=== PATIENT | male | born 1965 | race Hispanic/Latino ===

== ENCOUNTER 2021-05-07 10:55 | Inpatient (IN) | payer OTHER, MEDICARE ==
[~2021-05-07] VITALS: Ht 165.1 cm; Wt 64.5 kg
[2021-05-07] VITALS (20 sets, daily range): BP systolic 133–252; BP diastolic 78–102
[2021-05-07 11:18] LABS: BASOPHILS % (AUTO) 0.7 % (0.0-5.0); EOSINOPHILS % (AUTO) 1.2 % (0.0-8.0); HEMATOCRIT 34.2 % (42-54); LYMPHOCYTES % (AUTO) 8.5 % (21.0-51.0); MEAN CORPUSCULAR HEMOGLOBIN 30.8 pg (27.0-33.0); MEAN CORPUSCULAR HGB CONC 33.3 g/dL (32.0-36.0); MEAN CORPUSCULAR VOLUME 92.4 fL (79-99); MONOCYTES % (AUTO) 6.8 % (3.0-13.0); NEUTROPHILS % (AUTO) 82.5 % (40.0-77.0); PLATELET COUNT (AUTO) 206 K/uL (130-400); RED CELL DISTRIBUTION WIDTH 14.6 % (11.0-15.5); WHITE BLOOD COUNT (AUTO) 8.9 K/uL (4.8-10.8)
[2021-05-07] MEDS ORDERED: ONDANSETRON 4MG INJ ONE (11:21)
[2021-05-07] MEDS ORDERED: NITROGLYCERIN 1GM OINT 1 INCH/1GM TD ONE (11:21)
[2021-05-07 11:28] LABS: INR 0.99 (0.85-1.15); PROTHROMBIN TIME 10.8 SEC (9.6-11.6)
[2021-05-07 11:29] LABS: PARTIAL THROMBOPLASTIN TIME 40.6 SEC (26.3-35.5)
[2021-05-07] MEDS ORDERED: ONDANSETRON 4MG INJ IVP SCH (11:30)
[2021-05-07] MEDS ORDERED: NITROGLYCERIN 1GM OINT 1 INCH/1GM TD SCH (11:30)
[2021-05-07 11:31] LABS: ALBUMIN 3.8 g/dL (3.5-5.0); BILIRUBIN,TOTAL 0.4 mg/dL (0.2-1.0); TOTAL PROTEIN, SERUM 8.1 g/dL (6.0-8.3)
[2021-05-07 11:32] LABS: POTASSIUM 6.2 mmol/L (3.5-5.1)
[2021-05-07 11:33] LABS: CREATININE 9.6 mg/dL (0.5-1.5)
[2021-05-07 11:44] LABS: B-TYPE NATRIURETIC PEPTIDE 1840 pg/mL (0-100)
[2021-05-07] MEDS ORDERED: CALCIUM GLUC 1GM VIAL 1 GM in 0.9%NACL 100ML 100 ML IV SCH (12:00)
[2021-05-07] MEDS ORDERED: DEXTROSE 50%-WATER 50 ML DISP.SYRIN IV SCH (12:00)
[2021-05-07] MEDS ORDERED: FUROSEMIDE 40 MG UD CUP PO SCH (12:00)
[2021-05-07] MEDS ORDERED: INSULIN HUMULIN R 100 UNIT/ML 3ML IV SCH (12:00)
[2021-05-07] MEDS ORDERED: FUROSEMIDE 40 MG TABLET ONE (12:33)
[2021-05-07] MEDS ORDERED: CALCIUM GLUC 1GM VIAL IV ONE (12:51)
[2021-05-07] MEDS ORDERED: 0.9%NACL 100ML 100 ML ONE (12:52)
[2021-05-07] MEDS: ALBUTEROL 0.083% 2.5 MG/3 ML INH IH SCH ×2 (13:08→19:08)
[2021-05-07] MEDS ORDERED: ACET-3194 PO (13:21)
[2021-05-07] MEDS ORDERED: AVANDARYL PO (13:21)
[2021-05-07] MEDS ORDERED: Imdur PO (13:21)
[2021-05-07] MEDS ORDERED: PHOSLOC PO (13:21)
[2021-05-07] MEDS ORDERED: CLON-353 PO (13:21)
[2021-05-07] MEDS ORDERED: AMLO-258 PO (13:21)
[2021-05-07] MEDS ORDERED: CLON0.1T2 PO (13:21)
[2021-05-07] MEDS ORDERED: LISI40TA9 PO (13:21)
[2021-05-07] MEDS ORDERED: HYDR-4154 PO (13:21)
[2021-05-07] MEDS ORDERED: vitamin B6 PO (13:21)
[2021-05-07 15:06] LABS: HEMATOCRIT 31.5 % (42-54)
[2021-05-07 15:20] LABS: % IRON SATURATION 66.1 % (30-44)
[2021-05-07 15:25] LABS: ALBUMIN 3.8 g/dL (3.5-5.0); CREATININE 4.7 mg/dL (0.5-1.5)
[2021-05-07 15:40] LABS: HEMOGLOBIN A1C 7.3 % (4.0-6.0)
[2021-05-07] MEDS: INSULIN HUMULIN R 100 UNIT/ML 3ML SQ SCH ×2 (16:30→21:00)
[2021-05-07] MEDS ORDERED: CLONIDINE HCL 0.2 MG TABLET PO ONE (18:32)
[2021-05-07] MEDS ORDERED: CLONIDINE HCL 0.1 MG TABLET PO PRN (19:00)
[2021-05-07] MEDS: CLONIDINE HCL 0.2 MG TABLET PO SCH (21:00)
[2021-05-07] MEDS ORDERED: NON-FORMULARY MEDICATION 1 EACH (Hydralazine HCl 50 MG) PO SCH (21:00)
[2021-05-07] MEDS: HYDRALAZINE 25MG TABLET PO SCH (22:15)
[2021-05-07] MEDS ORDERED: AMLODIPINE 5 MG TAB ONE (23:12)
[2021-05-07] MEDS ORDERED: AMLODIPINE 5 MG TAB PO ONE (23:30)
[2021-05-08] VITALS (7 sets, daily range): BP systolic 151–198; BP diastolic 69–95
[2021-05-08] MEDS: ALBUTEROL 0.083% 2.5 MG/3 ML INH IH SCH ×5 (00:29→22:44)
[2021-05-08] MEDS ORDERED: GLUCAGON 1MG KIT 1 MG ML IM PRN (02:00)
[2021-05-08] MEDS ORDERED: ACETAMINOPHEN 325 MG TAB PO PRN ×2 (02:00)
[2021-05-08] MEDS ORDERED: DEXTROSE 50%-WATER 50 ML DISP.SYRIN IV PRN (02:00)
[2021-05-08] MEDS ORDERED: ONDANSETRON 4MG INJ IVP PRN ×2 (02:00)
[2021-05-08 04:20] LABS: BASOPHILS % (AUTO) 0.4 % (0.0-5.0); HEMATOCRIT 33.5 % (42-54); LYMPHOCYTES % (AUTO) 8.8 % (21.0-51.0); MEAN CORPUSCULAR HEMOGLOBIN 30.7 pg (27.0-33.0); MEAN CORPUSCULAR HGB CONC 33.4 g/dL (32.0-36.0); MEAN CORPUSCULAR VOLUME 91.8 fL (79-99); MONOCYTES % (AUTO) 9.2 % (3.0-13.0); NEUTROPHILS % (AUTO) 81.2 % (40.0-77.0); PLATELET COUNT (AUTO) 203 K/uL (130-400); RED BLOOD CELL COUNT(AUTO) 3.65 MIL/uL (4.50-6.20); RED CELL DISTRIBUTION WIDTH 14.8 % (11.0-15.5); WHITE BLOOD COUNT (AUTO) 7.5 K/uL (4.8-10.8)
[2021-05-08 04:45] LABS: CREATININE 6.6 mg/dL (0.5-1.5); MAGNESIUM 2.3 mg/dL (1.80-2.40); PHOSPHORUS 4.9 mg/dL (2.5-4.9); POTASSIUM 5.5 mmol/L (3.5-5.1)
[2021-05-08] MEDS: INSULIN R PO SS1/2 SQ SCH ×4 (06:06→21:20)
[2021-05-08] MEDS: CLONIDINE HCL 0.2 MG TABLET PO SCH ×3 (07:59→21:14)
[2021-05-08] MEDS: Vitamin B Complex/Vit C/Folic Acid PO SCH (07:59)
[2021-05-08] MEDS: HYDRALAZINE 25MG TABLET PO SCH ×3 (07:59→21:14)
[2021-05-08] MEDS: ISOSORBIDE MONO 60MG SR TAB PO SCH (07:59)
[2021-05-08] MEDS: CALCIUM AC 667MG CAP PO SCH ×3 (08:00→16:04)
[2021-05-08] MEDS: AVANDARYL 4 MG PO SCH (08:00)
[2021-05-08] MEDS: THIAMINE HCL 100 MG TABLET PO SCH (08:00)
[2021-05-08] MEDS: LISINOPRIL 40 MG TABLET PO SCH (08:00)
[2021-05-08] MEDS: AMLODIPINE 5 MG TAB PO SCH (08:00)
[2021-05-08] MEDS ORDERED: IMDUR 60 MG PO SCH (09:00)
[2021-05-08] MEDS ORDERED: VITAMIN B6 PO SCH (09:00)
[2021-05-08] MEDS ORDERED: PANTOPRAZOLE 40 MG/VIAL IVP SCH (09:00)
[2021-05-08] MEDS ORDERED: NON-FORMULARY MEDICATION 1 EACH (Amlodipine Besylate 10 MG) PO SCH (09:00)
[2021-05-08] MEDS ORDERED: Vitamin B Complex/Vit C/Folic Acid PO SCH (09:00)
[2021-05-08] MEDS ORDERED: FAMOTIDINE 20MG VIAL IV SCH (09:00)
[2021-05-08] MEDS ORDERED: ARTIFICAL TEARS SOL 15 ML OU PRN (17:00)
[2021-05-08] MEDS: ZOLPIDEM TARTRATE 5 MG TAB PO PRN (21:15)
[2021-05-09] VITALS (19 sets, daily range): BP systolic 120–168; BP diastolic 45–110
[2021-05-09 04:55] LABS: HEMATOCRIT 33.2 % (42-54); MEAN CORPUSCULAR HEMOGLOBIN 30.5 pg (27.0-33.0); MEAN CORPUSCULAR HGB CONC 32.8 g/dL (32.0-36.0); RED BLOOD CELL COUNT(AUTO) 3.57 MIL/uL (4.50-6.20); RED CELL DISTRIBUTION WIDTH 14.9 % (11.0-15.5); WHITE BLOOD COUNT (AUTO) 7.5 K/uL (4.8-10.8)
[2021-05-09 05:16] LABS: PHOSPHORUS 6.7 mg/dL (2.5-4.9); POTASSIUM 5.4 mmol/L (3.5-5.1)
[2021-05-09 05:33] LABS: CREATININE 9.1 mg/dL (0.5-1.5)
[2021-05-09] MEDS: INSULIN R PO SS1/2 SQ SCH ×4 (07:04→21:00)
[2021-05-09] MEDS: PANTOPRAZOLE 40 MG TAB DR PO SCH (08:04)
[2021-05-09] MEDS: AMLODIPINE 5 MG TAB PO SCH (08:04)
[2021-05-09] MEDS: LISINOPRIL 40 MG TABLET PO SCH (08:04)
[2021-05-09] MEDS: ISOSORBIDE MONO 60MG SR TAB PO SCH (08:04)
[2021-05-09] MEDS: THIAMINE HCL 100 MG TABLET PO SCH (08:04)
[2021-05-09] MEDS: CALCIUM AC 667MG CAP PO SCH ×3 (08:04→16:18)
[2021-05-09] MEDS: AVANDARYL 4 MG PO SCH (08:05)
[2021-05-09] MEDS: Vitamin B Complex/Vit C/Folic Acid PO SCH (08:05)
[2021-05-09] MEDS: HYDRALAZINE 25MG TABLET PO SCH ×3 (08:05→21:49)
[2021-05-09] MEDS: CLONIDINE HCL 0.2 MG TABLET PO SCH ×3 (08:05→21:49)
[2021-05-09] MEDS: ALBUTEROL 0.083% 2.5 MG/3 ML INH IH SCH ×4 (08:29→23:26)
[2021-05-09 17:10] LABS: HEPATITIS Bs ANTIGEN SCREEN P Negative (Negative)
[2021-05-09] MEDS: ZOLPIDEM TARTRATE 5 MG TAB PO PRN (21:44)
[2021-05-10 03:10] VITALS: BP 135/76
[2021-05-10 03:56] LABS: HEMATOCRIT 29.7 % (42-54); MEAN CORPUSCULAR HEMOGLOBIN 30.8 pg (27.0-33.0); MEAN CORPUSCULAR VOLUME 93.4 fL (79-99); RED BLOOD CELL COUNT(AUTO) 3.18 MIL/uL (4.50-6.20); WHITE BLOOD COUNT (AUTO) 8.6 K/uL (4.8-10.8)
[2021-05-10 04:20] LABS: CREATININE 6.6 mg/dL (0.5-1.5); POTASSIUM 5.4 mmol/L (3.5-5.1)
[2021-05-10] MEDS: ALBUTEROL 0.083% 2.5 MG/3 ML INH IH SCH ×2 (06:00→11:26)
[2021-05-10] MEDS: INSULIN R PO SS1/2 SQ SCH ×2 (06:56→11:30)
[2021-05-10 08:00] VITALS: BP 186/85
[2021-05-10] MEDS: CALCIUM AC 667MG CAP PO SCH ×2 (08:00→11:26)
[2021-05-10] MEDS: Vitamin B Complex/Vit C/Folic Acid PO SCH (09:00)
[2021-05-10] MEDS: AVANDARYL 4 MG PO SCH (09:00)
[2021-05-10] MEDS: AMLODIPINE 5 MG TAB PO SCH (11:23)
[2021-05-10] MEDS: LISINOPRIL 40 MG TABLET PO SCH (11:23)
[2021-05-10] MEDS: PANTOPRAZOLE 40 MG TAB DR PO SCH (11:23)
[2021-05-10] MEDS: CLONIDINE HCL 0.2 MG TABLET PO SCH (11:24)
[2021-05-10] MEDS: HYDRALAZINE 25MG TABLET PO SCH (11:25)
[2021-05-10] MEDS: ISOSORBIDE MONO 60MG SR TAB PO SCH (11:25)
[2021-05-10] MEDS: THIAMINE HCL 100 MG TABLET PO SCH (11:26)
[2021-05-10 12:00] VITALS: BP 188/88
== END 2021-05-10 13:00 | disposition home or self-care (01) | DRG 304 ==
LOC: EDH 10:55 → EDHIP 11:47 → 4CH 22:51 → 4BH 22:59
PROVIDERS: ADMIT Internal Medicine Nephrology; ATTEND Internal Medicine Nephrology
PROC: 5A1D70Z Performance of Urinary Filtration, Intermittent, Less than 6 Hours Per Day (ICD-10-PCS; principal; 2021-05-07)
PROC: 5A1D70Z Performance of Urinary Filtration, Intermittent, Less than 6 Hours Per Day (ICD-10-PCS; 2021-05-09)
DX: I16.0 Hypertensive urgency (principal); N18.6 End stage renal disease; E87.5 Hyperkalemia; I12.0 Hypertensive chronic kidney disease with stage 5 chronic kidney disease or end stage renal disease; E11.22 Type 2 diabetes mellitus with diabetic chronic kidney disease; E78.5 Hyperlipidemia, unspecified; F19.10 Other psychoactive substance abuse, uncomplicated; D64.9 Anemia, unspecified; E87.70 Fluid overload, unspecified; F14.10 Cocaine abuse, uncomplicated; Z99.2 Dependence on renal dialysis; Z86.11 Personal history of tuberculosis; Z79.899 Other long term (current) drug therapy; Z91.15 Patient's noncompliance with renal dialysis; Z91.19 Patient's noncompliance with other medical treatment and regimen; Z71.51 Drug abuse counseling and surveillance of drug abuser; Z71.3 Dietary counseling and surveillance
CPT/HCPCS: 36415; 70450; 71045; 80048; 80053; 80061; 82040; 82550; 82565; 82728; 82948; 83036; 83540; 83550; 83735; 83880; 84100; 84484; 84520; 85014; 85018; 85025; 85027; 85610; 85730; 86704; 86706; 87340; 90935; 93005; 94640; 94664; 99291; C9113; G0378; J0610; J1815; J2405; J3490; J7070

== ENCOUNTER 2021-10-13 03:50 | Emergency (ER) | payer OTHER, MEDICARE ==
[~2021-10-13] VITALS: Ht 167.6 cm; Wt 64.0 kg
[~2021-10-13 03:50] MED LIST: ACET-3194 PO; AMLO-258 PO; AVANDARYL PO; CLON-353 PO; CLON0.1T2 PO; HYDR-4154 PO; Imdur PO; LISI40TA9 PO; PHOSLOC PO; vitamin B6 PO
[2021-10-13 04:05] VITALS: BP 178/75
[2021-10-13] MEDS ORDERED: MORPHINE 2 MG SYG IVP ONE (04:30)
[2021-10-13] MEDS ORDERED: CLINDAMYCIN IVPB 600MG/50ML 50 ML IV ONE (04:30)
[2021-10-13 05:02] LABS: BASOPHILS % (AUTO) 0.9 % (0.0-5.0); EOSINOPHILS % (AUTO) 2.7 % (0.0-8.0); HEMATOCRIT 31.3 % (42-54); LYMPHOCYTES % (AUTO) 15.5 % (21.0-51.0); MEAN CORPUSCULAR HEMOGLOBIN 31.6 pg (27.0-33.0); MEAN CORPUSCULAR HGB CONC 32.6 g/dL (32.0-36.0); MEAN CORPUSCULAR VOLUME 96.9 fL (79-99); MONOCYTES % (AUTO) 10.7 % (3.0-13.0); NEUTROPHILS % (AUTO) 69.9 % (40.0-77.0); PLATELET COUNT (AUTO) 227 K/uL (130-400); RED BLOOD CELL COUNT(AUTO) 3.23 MIL/uL (4.50-6.20); RED CELL DISTRIBUTION WIDTH 14.6 % (11.0-15.5); WHITE BLOOD COUNT (AUTO) 9.8 K/uL (4.8-10.8)
[2021-10-13 05:13] LABS: CREATININE 5.6 mg/dL (0.5-1.5)
[2021-10-13] MEDS ORDERED: ACET1TAB25 PO (05:22)
[2021-10-13] MEDS ORDERED: CLIN-141 PO (05:22)
[2021-10-14] MEDS ORDERED: CLOP75TA32 PO (13:09)
[2021-10-14] MEDS ORDERED: PIOG15TA66 PO (13:09)
[2021-10-14] MEDS ORDERED: SODI650T PO (13:10)
== END 2021-10-13 05:42 | disposition home or self-care (01) ==
LOC: EDH 03:50
DX: L03.011 Cellulitis of right finger (principal); L98.499 Non-pressure chronic ulcer of skin of other sites with unspecified severity; I12.0 Hypertensive chronic kidney disease with stage 5 chronic kidney disease or end stage renal disease; E11.22 Type 2 diabetes mellitus with diabetic chronic kidney disease; N18.6 End stage renal disease; Z99.2 Dependence on renal dialysis; Z79.899 Other long term (current) drug therapy; Z98.890 Other specified postprocedural states
CPT/HCPCS: 36415; 80048; 85025; 96374; 96375; 99284; J3490

== ENCOUNTER 2021-10-14 08:55 | Day surgery (SDC) | payer OTHER, MEDICARE ==
[2021-10-11 16:16] LABS: HEMATOCRIT 33.2 % (42-54); MEAN CORPUSCULAR HEMOGLOBIN 32.5 pg (27.0-33.0); MEAN CORPUSCULAR HGB CONC 32.8 g/dL (32.0-36.0); MEAN CORPUSCULAR VOLUME 99.1 fL (79-99); RED BLOOD CELL COUNT(AUTO) 3.35 MIL/uL (4.50-6.20); RED CELL DISTRIBUTION WIDTH 14.5 % (11.0-15.5); WHITE BLOOD COUNT (AUTO) 7.9 K/uL (4.8-10.8)
[2021-10-11 16:29] LABS: INR 1.12 (0.85-1.15); PROTHROMBIN TIME 12.1 SEC (9.6-11.6)
[2021-10-11 16:30] LABS: PARTIAL THROMBOPLASTIN TIME 28.3 SEC (26.3-35.5)
[2021-10-11 16:33] LABS: CREATININE 6.7 mg/dL (0.5-1.5)
[2021-10-14] VITALS (14 sets, daily range): BP systolic 161–188; BP diastolic 69–80
[~2021-10-14 08:55] MED LIST changes: +ACET1TAB25 PO; +CLIN-141 PO
[2021-10-14] MEDS ORDERED: 0.9%NACL 1000ML 1,000 ML IV ONE (10:02)
[2021-10-14] MEDS ORDERED: ACETAMINOPHEN 500 MG TABLET ONE (11:07)
[2021-10-14] MEDS: CEFAZOLIN SODIUM 1 GM VIAL IVP SCH ×2 (11:11→16:15)
[2021-10-14] MEDS ORDERED: ACETAMINOPHEN 500 MG TABLET PO ONE (11:30)
[2021-10-14] MEDS ORDERED: CLOP75TA32 PO (13:09)
[2021-10-14] MEDS ORDERED: PIOG15TA66 PO (13:09)
[2021-10-14] MEDS ORDERED: SODI650T PO (13:10)
[2021-10-14] MEDS ORDERED: PROPOFOL 10 MG/ML 20ML VIAL IV ONE (15:51)
[2021-10-14] MEDS ORDERED: MIDAZOLAM HCL 1 MG/ML 2ML VIAL ONE (15:51)
[2021-10-14] MEDS ORDERED: FENTANYL CITRATE PF 50 MCG/1 ML 2ML VIAL ONE ×2 (15:52→17:58)
[2021-10-14] MEDS ORDERED: ONDANSETRON 4MG INJ ONE (15:52)
[2021-10-14] MEDS ORDERED: ROCURONIUM 10MG/1ML SYR 10 MG/ML ML ONE (15:52)
[2021-10-14] MEDS ORDERED: CEFAZOLIN SODIUM 1 GM VIAL ONE (16:03)
[2021-10-14] MEDS ORDERED: EPHEDRINE SULFATE 50 MG/ML AMPULE ONE (16:19)
[2021-10-14] MEDS ORDERED: BUPIVACAINE/PF 0.5% 30ML VIAL ONE (17:03)
[2021-10-14] MEDS ORDERED: LIDOCAINE HCL 1% MDV 50ML VIAL ONE (17:03)
[2021-10-14] MEDS ORDERED: NEOSTIGMINE 5MG/5ML SYR IV ONE (17:57)
[2021-10-14] MEDS ORDERED: GLYCOPYRROLATE 1 MG/5 ML SYRINGE ONE (17:58)
[2021-10-14] MEDS ORDERED: HEPARIN 10,000 UNIT/10ML (1,000 UNIT/ML) VIAL ONE (18:01)
[2021-10-14] MEDS ORDERED: MORPHINE 2 MG SYG ONE (18:36)
== END 2021-10-14 19:40 | disposition home or self-care (01) ==
LOC: DAH 08:55
PROVIDERS: ATTEND Thoracic Surgery (Cardiothoracic Vascular Surgery)
DX: T82.898A Other specified complication of vascular prosthetic devices, implants and grafts, initial encounter (principal); Z20.822 Contact with and (suspected) exposure to COVID-19; I77.0 Arteriovenous fistula, acquired; N18.6 End stage renal disease; I25.2 Old myocardial infarction; Z79.899 Other long term (current) drug therapy; Z98.890 Other specified postprocedural states; Z79.01 Long term (current) use of anticoagulants; Y83.2 Surgical operation with anastomosis, bypass or graft as the cause of abnormal reaction of the patient, or of later complication, without mention of misadventure at the time of the procedure
CPT/HCPCS: 36415 ×2; 36838; 71045; 80048; 82948 ×2; 84132; 85027; 85610; 85730; 86850; 86900; 86901; 87635; 93005; A4215; A4221; A4222; A4223; A4452; A4649 ×3; A4663; A4930; A6260; A6446; C1713 ×2; C1768; C9803; G0168; J0690 ×2; J1644 ×2; J2250; J2405; J2704; J2710; J3010 ×2; J3490 ×4; J7030 ×2

== ENCOUNTER 2023-01-19 06:39 | Day surgery (SDC) | payer OTHER, MEDICARE ==
[2023-01-16 10:58] LABS: MEAN CORPUSCULAR HEMOGLOBIN 31.5 pg (27.0-33.0); MEAN CORPUSCULAR HGB CONC 31.7 g/dL (32.0-36.0); MEAN CORPUSCULAR VOLUME 99.4 fL (79-99); RED BLOOD CELL COUNT(AUTO) 3.52 MIL/uL (4.50-6.20); RED CELL DISTRIBUTION WIDTH 14.6 % (11.0-15.5); WHITE BLOOD COUNT (AUTO) 6.7 K/uL (4.8-10.8)
[2023-01-16 11:21] VITALS: BP 154/65
[2023-01-16 11:36] LABS: INR 0.98 (0.85-1.15); PROTHROMBIN TIME 10.7 SEC (9.6-11.6)
[2023-01-16 11:38] LABS: PARTIAL THROMBOPLASTIN TIME 26.5 SEC (26.3-35.5)
[2023-01-16 12:53] LABS: CREATININE 5.7 mg/dL (0.5-1.5)
[2023-01-19] VITALS (18 sets, daily range): BP systolic 114–177; BP diastolic 41–86
[~2023-01-19] VITALS: Ht 152.4 cm; Wt 67.5 kg
[~2023-01-19 06:39] MED LIST changes: -ACET-3194 PO; -ACET1TAB25 PO; +ASPI-1197 PO; -AVANDARYL PO; -CLIN-141 PO; -CLON0.1T2 PO; -Imdur PO; +PIOG15TA66 PO; +SODI650T PO; -vitamin B6 PO
[2023-01-19] MEDS ORDERED: CEFAZOLIN SODIUM 1 GM VIAL ONE ×2 (07:06→07:28)
[2023-01-19] MEDS ORDERED: 0.9% NACL 500ML IV.SOLN 500 ML IV ONE (07:06)
[2023-01-19 07:28] LABS: CREATININE 7.2 mg/dL (0.5-1.5); POTASSIUM 5.6 mmol/L (3.5-5.1)
[2023-01-19] MEDS ORDERED: BUPIVACAINE/PF 0.5% 30ML VIAL ONE (07:29)
[2023-01-19] MEDS ORDERED: BUPIVACAINE/PF 0.25% 30ML VIAL IJ ONE (07:33)
[2023-01-19] MEDS ORDERED: LIDOCAINE HCL 1% 20 ML VIAL ONE (07:33)
[2023-01-19] MEDS ORDERED: SUCCINYLCHOLINE 200MG/10ML SYR ONE (08:02)
[2023-01-19] MEDS ORDERED: LIDOCAINE PF 100MG/5ML (2%) SYRINGE 5ML ONE (08:02)
[2023-01-19] MEDS ORDERED: DEXAMETHASONE SOD PHOSPHATE 10MG/ML 1ML VIAL ONE (08:02)
[2023-01-19] MEDS ORDERED: MIDAZOLAM HCL 1 MG/ML 2ML VIAL ONE (08:02)
[2023-01-19] MEDS ORDERED: ROCURONIUM 10MG/1ML SYR 10 MG/ML ML ONE (08:03)
[2023-01-19] MEDS ORDERED: NEOSTIGMINE 5MG/5ML SYR IV ONE (08:03)
[2023-01-19] MEDS ORDERED: GLYCOPYRROLATE 1 MG/5 ML SYRINGE ONE (08:03)
[2023-01-19] MEDS ORDERED: ONDANSETRON 4MG INJ ONE (08:03)
[2023-01-19] MEDS ORDERED: PHENYLEPHRINE HCL 10 MG/ML 1ML VIAL IV ONE (08:03)
[2023-01-19] MEDS ORDERED: PROPOFOL 10 MG/ML 20ML VIAL IV ONE (08:03)
[2023-01-19] MEDS ORDERED: FENTANYL CITRATE PF 50 MCG/1 ML 2ML VIAL ONE (08:03)
[2023-01-19] MEDS ORDERED: EPHEDRINE SULFATE 50 MG/ML AMPULE ONE (08:21)
[2023-01-19] MEDS ORDERED: HEPARIN 10,000 UNIT/10ML (1,000 UNIT/ML) VIAL ONE (09:19)
[2023-01-19] MEDS ORDERED: PROTAMINE SULFATE 10 MG/ML 25ML VIAL IV ONE (09:19)
[2023-01-19] MEDS ORDERED: KETOROLAC 30MG VIAL (30MG/ML) ONE (09:35)
== END 2023-01-19 11:50 | disposition home or self-care (01) ==
LOC: DAH 06:39
PROVIDERS: ATTEND Thoracic Surgery (Cardiothoracic Vascular Surgery)
DX: I72.1 Aneurysm of artery of upper extremity (principal); Z20.822 Contact with and (suspected) exposure to COVID-19; E11.22 Type 2 diabetes mellitus with diabetic chronic kidney disease; I12.0 Hypertensive chronic kidney disease with stage 5 chronic kidney disease or end stage renal disease; N18.6 End stage renal disease; I25.2 Old myocardial infarction; D63.1 Anemia in chronic kidney disease; E78.5 Hyperlipidemia, unspecified; Z99.2 Dependence on renal dialysis; Z98.890 Other specified postprocedural states; Z87.891 Personal history of nicotine dependence; Z79.01 Long term (current) use of anticoagulants; Z79.899 Other long term (current) drug therapy
CPT/HCPCS: 80048 ×2; 85027; 85610; 85730; 86850 ×2; 86900 ×2; 86901 ×2; 87426; 36415 ×2; 71045; 93005; 37607; 82948 ×2; A4663; J7030; J7040; J3010; J0690 ×2; J0330; J3490 ×3; J1100; J2710; J2001; J1644 ×2; J2250; J2704; J2405; J1885; J2370; A6446; A4649 ×3; C1713 ×2; A4215; A4223; A4222; A4221; J2720

== ENCOUNTER → 2024-02-10 | Outpatient (CLI) | payer OTHER, MEDICARE ==
[~2024-02-10] MED LIST changes: -HYDR-4154 PO; +HYDR50TA37 PO; +LIDOCAINE HCL 4% LTA SOL 4 ML VIAL TP ONE
== END | disposition home or self-care (01) ==
LOC: WHH 08:29
PROVIDERS: ATTEND Podiatrist Foot & Ankle Surgery
DX: E11.622 Type 2 diabetes mellitus with other skin ulcer (principal); L97.512 Non-pressure chronic ulcer of other part of right foot with fat layer exposed; L97.412 Non-pressure chronic ulcer of right heel and midfoot with fat layer exposed; E11.51 Type 2 diabetes mellitus with diabetic peripheral angiopathy without gangrene; E11.40 Type 2 diabetes mellitus with diabetic neuropathy, unspecified; E11.22 Type 2 diabetes mellitus with diabetic chronic kidney disease; N18.6 End stage renal disease; Z89.021 Acquired absence of right finger(s); Z79.82 Long term (current) use of aspirin; Z79.899 Other long term (current) drug therapy
CPT/HCPCS: 11042; 87086 ×2; 87186 ×2; 11045; 87070; A6209; A4450

== ENCOUNTER → 2024-02-24 | Outpatient (CLI) | payer OTHER, MEDICARE | END | disposition home or self-care (01) | LOC: WHH 10:18 | PROVIDERS: ATTEND Podiatrist Foot & Ankle Surgery | DX: T87.89 Other complications of amputation stump (principal); E11.621 Type 2 diabetes mellitus with foot ulcer; L97.512 Non-pressure chronic ulcer of other part of right foot with fat layer exposed; L97.412 Non-pressure chronic ulcer of right heel and midfoot with fat layer exposed; E11.51 Type 2 diabetes mellitus with diabetic peripheral angiopathy without gangrene; E11.40 Type 2 diabetes mellitus with diabetic neuropathy, unspecified; E11.22 Type 2 diabetes mellitus with diabetic chronic kidney disease; N18.6 End stage renal disease; F17.200 Nicotine dependence, unspecified, uncomplicated; Y83.5 Amputation of limb(s) as the cause of abnormal reaction of the patient, or of later complication, without mention of misadventure at the time of the procedure | CPT/HCPCS: 11042; 11045; A6209 ==

== ENCOUNTER → 2024-03-02 | Outpatient (CLI) | payer OTHER, MEDICARE | END | disposition home or self-care (01) | LOC: WHH 09:40 | PROVIDERS: ATTEND Podiatrist Foot & Ankle Surgery | DX: E11.621 Type 2 diabetes mellitus with foot ulcer (principal); L97.512 Non-pressure chronic ulcer of other part of right foot with fat layer exposed; L97.412 Non-pressure chronic ulcer of right heel and midfoot with fat layer exposed; E11.51 Type 2 diabetes mellitus with diabetic peripheral angiopathy without gangrene; E11.40 Type 2 diabetes mellitus with diabetic neuropathy, unspecified; E11.22 Type 2 diabetes mellitus with diabetic chronic kidney disease; N18.6 End stage renal disease; F17.200 Nicotine dependence, unspecified, uncomplicated; Z79.82 Long term (current) use of aspirin; Z79.899 Other long term (current) drug therapy; Y83.5 Amputation of limb(s) as the cause of abnormal reaction of the patient, or of later complication, without mention of misadventure at the time of the procedure | CPT/HCPCS: G0463; A6209 ==

== ENCOUNTER → 2024-03-16 | Outpatient (CLI) | payer OTHER, MEDICARE | END | disposition home or self-care (01) | LOC: WHH 09:28 | PROVIDERS: ATTEND Podiatrist Foot & Ankle Surgery | DX: E11.621 Type 2 diabetes mellitus with foot ulcer (principal); L97.512 Non-pressure chronic ulcer of other part of right foot with fat layer exposed; L97.412 Non-pressure chronic ulcer of right heel and midfoot with fat layer exposed; E11.51 Type 2 diabetes mellitus with diabetic peripheral angiopathy without gangrene; E11.40 Type 2 diabetes mellitus with diabetic neuropathy, unspecified; E11.22 Type 2 diabetes mellitus with diabetic chronic kidney disease; N18.6 End stage renal disease; F17.200 Nicotine dependence, unspecified, uncomplicated; Z79.82 Long term (current) use of aspirin; Z79.899 Other long term (current) drug therapy; Y83.5 Amputation of limb(s) as the cause of abnormal reaction of the patient, or of later complication, without mention of misadventure at the time of the procedure | CPT/HCPCS: 11042; 87070; 87086 ×3; 87186 ×3; 11045; A6197; A4450 ==

== ENCOUNTER → 2024-03-18 | Outpatient (CLI) | payer OTHER, MEDICARE ==
[~2024-03-18] MED LIST changes: -LIDOCAINE HCL 4% LTA SOL 4 ML VIAL TP ONE
== END | disposition home or self-care (01) ==
LOC: WHH 11:01
PROVIDERS: ATTEND Podiatrist Foot & Ankle Surgery
DX: E11.621 Type 2 diabetes mellitus with foot ulcer (principal); L97.512 Non-pressure chronic ulcer of other part of right foot with fat layer exposed; L97.412 Non-pressure chronic ulcer of right heel and midfoot with fat layer exposed; E11.51 Type 2 diabetes mellitus with diabetic peripheral angiopathy without gangrene; E11.40 Type 2 diabetes mellitus with diabetic neuropathy, unspecified; E11.22 Type 2 diabetes mellitus with diabetic chronic kidney disease; I12.0 Hypertensive chronic kidney disease with stage 5 chronic kidney disease or end stage renal disease; N18.6 End stage renal disease; F17.200 Nicotine dependence, unspecified, uncomplicated; Z79.82 Long term (current) use of aspirin; Z79.899 Other long term (current) drug therapy
CPT/HCPCS: 71046; 93005; 93923

== ENCOUNTER → 2024-03-23 | Outpatient (CLI) | payer OTHER, MEDICARE ==
[~2024-03-23] MED LIST changes: +LIDOCAINE HCL 4% LTA SOL 4 ML VIAL TP ONE
== END | disposition home or self-care (01) ==
LOC: WHH 08:32
PROVIDERS: ATTEND Podiatrist Foot & Ankle Surgery
DX: E11.621 Type 2 diabetes mellitus with foot ulcer (principal); L97.512 Non-pressure chronic ulcer of other part of right foot with fat layer exposed; L97.412 Non-pressure chronic ulcer of right heel and midfoot with fat layer exposed; E11.51 Type 2 diabetes mellitus with diabetic peripheral angiopathy without gangrene; E11.40 Type 2 diabetes mellitus with diabetic neuropathy, unspecified; E11.22 Type 2 diabetes mellitus with diabetic chronic kidney disease; N18.6 End stage renal disease; F17.200 Nicotine dependence, unspecified, uncomplicated; Z89.021 Acquired absence of right finger(s); Z79.82 Long term (current) use of aspirin; Z79.899 Other long term (current) drug therapy
CPT/HCPCS: 11042; 11045; A6248; A6197

== ENCOUNTER → 2024-03-25 | Outpatient (CLI) | payer OTHER, MEDICARE ==
[~2024-03-25] MED LIST changes: -LIDOCAINE HCL 4% LTA SOL 4 ML VIAL TP ONE
== END | disposition home or self-care (01) ==
LOC: RAH 13:05
PROVIDERS: ATTEND Podiatrist Foot & Ankle Surgery
DX: I08.3 Combined rheumatic disorders of mitral, aortic and tricuspid valves (principal); L97.512 Non-pressure chronic ulcer of other part of right foot with fat layer exposed
CPT/HCPCS: 93306

== ENCOUNTER 2024-04-13 22:47 | Inpatient (IN) | payer OTHER, MEDICARE ==
[~2024-04-13] VITALS: Ht 162.6 cm; Wt 68.0 kg
[2024-04-13 23:27] LABS: BASOPHILS # (AUTO) 0.05 K/uL (0.00-0.20); BASOPHILS % (AUTO) 0.2 % (0.0-5.0); EOSINOPHILS # (AUTO) 0.05 K/uL (0.00-0.70); EOSINOPHILS % (AUTO) 0.2 % (0.0-8.0); HEMATOCRIT 24.1 % (42-54); IMMATURE GRANULOCYTE ABSOLUTE 0.35 K/uL (0-1); LYMPHOCYTES # (AUTO) 0.5 K/uL (1.0-4.8); LYMPHOCYTES % (AUTO) 1.8 % (21.0-51.0); MEAN CORPUSCULAR HEMOGLOBIN 31.1 pg (27.0-33.0); MEAN CORPUSCULAR HGB CONC 32.4 g/dL (32.0-36.0); MONOCYTES # (AUTO) 1.7 K/uL (0.1-1.0); MONOCYTES % (AUTO) 6.3 % (3.0-13.0); NEUTROPHILS % (AUTO) 90.2 % (40.0-77.0); PLATELET COUNT (AUTO) 209 K/uL (130-400); RED BLOOD CELL COUNT(AUTO) 2.51 MIL/uL (4.50-6.20); RED CELL DISTRIBUTION WIDTH 16.6 % (11.0-15.5); WHITE BLOOD COUNT (AUTO) 26.6 K/uL (4.8-10.8)
[2024-04-13 23:33] LABS: CREATININE 5.7 mg/dL (0.5-1.3); POTASSIUM 5.2 mmol/L (3.5-5.1)
[2024-04-14] VITALS (24 sets, daily range): BP systolic 130–171; BP diastolic 61–85; PULSE 64–78; RESP 16–22; TEMP 97.4–98.8; O2SAT 88–99
[2024-04-14] MEDS: acetaMINOPHEN 325 MG TAB PO ONE (00:01)
[2024-04-14 00:14] LABS: INFLUENZA TYPE A Negative For Type A (NEGATIVE); INFLUENZA TYPE B Negative For Type B (NEGATIVE)
[2024-04-14 00:15] LABS: SARS-CoV-2, RNA, NAAT NEGATIVE SARS CoV-2 (NEGATIVE)
[2024-04-14] MEDS: ZOSYN 3.375GM +NS 50ML IVPB ONE (02:27)
[2024-04-14] MEDS: morPHINE 2 MG SYG IVP ONE (02:27)
[2024-04-14] MEDS: ondanSETRON 4MG INJ IVP ONE (02:27)
[2024-04-14] MEDS ORDERED: VANCOMYCIN PROTOCOL PER PHARMACY IV SCH ×2 (02:30→03:00)
[2024-04-14] MEDS ORDERED: acetaMINOPHEN 650 MG SUPPOSITORY RC PRN (03:00)
[2024-04-14] MEDS ORDERED: hydrALAZine 20MG/ML VIAL IV PRN (03:00)
[2024-04-14] MEDS: VANCOMYCIN KIT 1 GM/250 ML IV.KIT IV ONE (03:33)
[2024-04-14] MEDS: ALBUTEROL 0.083% 2.5 MG/3 ML INH IH PRN (03:52)
[2024-04-14] MEDS: IpraTROPium 0.5 MG/2.5 ML INH IH PRN (03:52)
[2024-04-14] MEDS: kayEXALate 15GM/60ML PO ONE (04:15)
[2024-04-14 04:22] LABS: ABG BASE EXCESS 2.7 mmol/L (-2.0-3.0); ABG HCO3 26.5 mmol/L (21.0-28.0); ABG OXYGEN SATURATION 84.4 % (94.0-98.0); ABG PCO2 38 mmHg (35-48); ABG PH 7.457 (7.350-7.450); DEVICE COMMENT LB RN MIKE; PO2, ARTERIAL BG 46.1 mmHg (83.0-108.0); VENT MODE, BG ROOMAIR (ROOM AIR)
[2024-04-14] MEDS: INSULIN humuLIN R 100 UNIT/ML 3ML SQ SCH (06:52)
[2024-04-14 07:21] LABS: HEMATOCRIT 22.9 % (42-54); MEAN CORPUSCULAR HGB CONC 32.3 g/dL (32.0-36.0); MEAN CORPUSCULAR VOLUME 95.8 fL (79-99); RED BLOOD CELL COUNT(AUTO) 2.39 MIL/uL (4.50-6.20); RED CELL DISTRIBUTION WIDTH 16.6 % (11.0-15.5); WHITE BLOOD COUNT (AUTO) 24.4 K/uL (4.8-10.8)
[2024-04-14 07:29] LABS: HEMOGLOBIN A1C 6.6 % (4.0-6.0)
[2024-04-14 07:49] LABS: CARBON DIOXIDE 28 mmol/L (21-32); CHLORIDE 92 mmol/L (101-111); CREATININE 6.2 mg/dL (0.5-1.3); GLOMERULAR FILTR. RATE CALC 10 mL/min (>90); GLUCOSE,RANDOM 209 mg/dL (70-105); SODIUM SERUM 130 mmol/L (136-145); THYROID STIMULATING HORMONE 2.13 uIU/mL (0.36-3.74); UREA NITROGEN, BLOOD 54 mg/dL (7-18)
[2024-04-14 08:00] LABS: ALCOHOL, BLOOD < 3 mg/dL (0-10)
[2024-04-14] MEDS ORDERED: CLOP75TA32 PO (08:38)
[2024-04-14] MEDS ORDERED: ASPIRIN 81MG CHEW TAB PO SCH (09:00)
[2024-04-14] MEDS: ASPIRIN 81MG CHEW TAB PO SCH (10:34)
[2024-04-14] MEDS: HEParin 5,000 UNIT VIAL SQ SCH (10:36)
[2024-04-14] MEDS: traMADol HCL 50 MG TABLET PO PRN (10:47)
[2024-04-14] MEDS: CALCIUM AC 667MG CAP PO SCH (12:11)
[2024-04-14] MEDS: 0.9%NACL 1000ML 1,000 ML IV SCH (13:39)
[2024-04-14] MEDS: hydrALAZine 25MG TABLET PO SCH (14:00)
[2024-04-14] MEDS ORDERED: NON-FORMULARY MEDICATION 1 EACH (Hydralazine HCl 50 MG) PO SCH (14:00)
[2024-04-14] MEDS: ceFEPime HCL 1 GM VIAL IVPB SCH (17:25)
[2024-04-14] MEDS: EPOETIN ALFA-EPBX (NON-ESRD) 10,000 UNIT/ML VIAL SQ SCH (18:18)
[2024-04-14] MEDS: FAMOTIDINE 20MG TAB PO SCH (21:03)
[2024-04-14] MEDS: TEMAZepam 15 MG CAPSULE PO PRN (21:03)
[2024-04-14] MEDS: atorVAStatin 40 MG TABLET PO SCH (21:03)
[2024-04-14] MEDS: VANCOMYCIN 500MG+NS 100ML 100 ML IV SCH (21:05)
[2024-04-15] VITALS (7 sets, daily range): BP systolic 139–171; BP diastolic 52–90; PULSE 69–74; RESP 18–22; TEMP 98.1–100.6; O2SAT 95–98
[2024-04-15 05:06] LABS: BASOPHILS # (AUTO) 0.07 K/uL (0.00-0.20); BASOPHILS % (AUTO) 0.3 % (0.0-5.0); EOSINOPHILS # (AUTO) 0.15 K/uL (0.00-0.70); EOSINOPHILS % (AUTO) 0.7 % (0.0-8.0); HEMATOCRIT 26.1 % (42-54); IMMATURE GRANULOCYTE ABSOLUTE 0.12 K/uL (0-1); LYMPHOCYTES # (AUTO) 0.8 K/uL (1.0-4.8); LYMPHOCYTES % (AUTO) 3.6 % (21.0-51.0); MEAN CORPUSCULAR HEMOGLOBIN 30.8 pg (27.0-33.0); MEAN CORPUSCULAR HGB CONC 31.4 g/dL (32.0-36.0); MEAN CORPUSCULAR VOLUME 98.1 fL (79-99); MONOCYTES # (AUTO) 1.9 K/uL (0.1-1.0); MONOCYTES % (AUTO) 8.7 % (3.0-13.0); NEUTROPHILS # (AUTO) 18.4 K/uL (1.8-7.7); NEUTROPHILS % (AUTO) 86.1 % (40.0-77.0); PLATELET COUNT (AUTO) 256 K/uL (130-400); RED BLOOD CELL COUNT(AUTO) 2.66 MIL/uL (4.50-6.20); RED CELL DISTRIBUTION WIDTH 16.7 % (11.0-15.5); WHITE BLOOD COUNT (AUTO) 21.4 K/uL (4.8-10.8)
[2024-04-15 05:32] LABS: ALBUMIN 1.9 g/dL (3.5-5.0); BILIRUBIN,TOTAL 0.7 mg/dL (0.2-1.0); CREATININE 4.7 mg/dL (0.5-1.3); PHOSPHORUS 6.3 mg/dL (2.5-4.9); POTASSIUM 4.6 mmol/L (3.5-5.1); TOTAL PROTEIN, SERUM 7.7 g/dL (6.0-8.3)
[2024-04-15 06:07] LABS: INR 1.07 (0.85-1.15); PROTHROMBIN TIME 11.5 SEC (9.6-11.6)
[2024-04-15 07:11] LABS: ABG BASE EXCESS 5.4 mmol/L (-2.0-3.0); ABG HCO3 30.4 mmol/L (21.0-28.0); ABG OXYGEN SATURATION 87.8 % (94.0-98.0); ABG PCO2 46 mmHg (35-48); ABG PH 7.443 (7.350-7.450); DEVICE COMMENT NIDIA RN LR; PO2, ARTERIAL BG 51.8 mmHg (83.0-108.0); VENT MODE, BG RA (ROOM AIR)
[2024-04-15] MEDS: LISINOPRIL 40 MG TABLET PO SCH (08:51)
[2024-04-15] MEDS: cloPIDOgrel 75MG TAB PO SCH (08:51)
[2024-04-15] MEDS: amLODIPine 5 MG TAB PO SCH (08:51)
[2024-04-15] MEDS: Vitamin B Complex/Vit C/Folic Acid PO SCH (08:52)
[2024-04-15] MEDS ORDERED: NON-FORMULARY MEDICATION 1 EACH (Amlodipine Besylate 10 MG) PO SCH (09:00)
[2024-04-15 10:44] LABS: HEPATITIS B SURFACE ANTIBODY Positive (Reactive)
[2024-04-15] MEDS ORDERED: IOHEXOL-350 75 ML VIAL IV ONE (12:29)
[2024-04-15] MEDS ORDERED: HEParin 25,000 UNITS/250ML D5W 250 ML IV SCH (12:30)
[2024-04-15] MEDS ORDERED: HEParin 5,000 UNIT VIAL SQ SCH (15:30)
[2024-04-15] MEDS: HEParin 5,000 UNIT VIAL SQ SCH (19:45)
[2024-04-15] MEDS: acetaMINOPHEN 325 MG TAB PO PRN (19:46)
[2024-04-16] VITALS (24 sets, daily range): BP systolic 102–189; BP diastolic 47–92; PULSE 61–79; RESP 16–22; TEMP 96–99.4; O2SAT 95–98
[2024-04-16 05:53] LABS: HEMATOCRIT 26.1 % (42-54); MEAN CORPUSCULAR HEMOGLOBIN 31.1 pg (27.0-33.0); MEAN CORPUSCULAR HGB CONC 31.4 g/dL (32.0-36.0); MEAN CORPUSCULAR VOLUME 98.9 fL (79-99); RED BLOOD CELL COUNT(AUTO) 2.64 MIL/uL (4.50-6.20); RED CELL DISTRIBUTION WIDTH 16.8 % (11.0-15.5); WHITE BLOOD COUNT (AUTO) 22.1 K/uL (4.8-10.8)
[2024-04-16 06:10] LABS: CREATININE 6.1 mg/dL (0.5-1.3); POTASSIUM 4.5 mmol/L (3.5-5.1)
[2024-04-16] MEDS: FAMOTIDINE 20MG TAB PO SCH (20:38)
[2024-04-16] MEDS: doCUSate SODIUM 100 MG CAP PO PRN (20:43)
[2024-04-17] VITALS (10 sets, daily range): BP systolic 125–161; BP diastolic 36–66; PULSE 65–76; RESP 18–24; TEMP 98.1–99.2; O2SAT 93–95
[2024-04-17 06:01] LABS: HEMATOCRIT 25.1 % (42-54); MEAN CORPUSCULAR HEMOGLOBIN 31.1 pg (27.0-33.0); MEAN CORPUSCULAR HGB CONC 31.5 g/dL (32.0-36.0); MEAN CORPUSCULAR VOLUME 98.8 fL (79-99); RED BLOOD CELL COUNT(AUTO) 2.54 MIL/uL (4.50-6.20); RED CELL DISTRIBUTION WIDTH 16.6 % (11.0-15.5)
[2024-04-17 06:24] LABS: CREATININE 4.9 mg/dL (0.5-1.3)
[2024-04-17] MEDS: LACTULOSE 20 GM/30 ML UDCUP PO PRN (09:11)
[2024-04-18] VITALS (19 sets, daily range): BP systolic 118–160; BP diastolic 57–98; PULSE 52–88; RESP 18–20; TEMP 98.2–99; O2SAT 92–96
[2024-04-18] MEDS ORDERED: LIDOCAINE HCL 1% 20 ML VIAL ONE (06:37)
[2024-04-18] MEDS ORDERED: BUPIvacaine/PF 0.25% 30ML VIAL IJ ONE (06:38)
[2024-04-18] MEDS ORDERED: BUPIvacaine/PF 0.5% 30ML VIAL ONE (06:41)
[2024-04-18] MEDS: 0.9% NACL 500ML IV.SOLN 500 ML IV ONE (06:57)
[2024-04-18 07:01] LABS: CREATININE 6.4 mg/dL (0.5-1.3); POTASSIUM 4.3 mmol/L (3.5-5.1)
[2024-04-18 12:15] LABS: HEPATITIS B SURFACE ANTIGEN Non-Reactive (Nonreactive)
[2024-04-18 12:16] LABS: HEPATITIS B CORE AB TOTAL Non-Reactive (Nonreactive)
[2024-04-18] MEDS ORDERED: LIDOCAINE HCL 400MG/20ML VIAL ONE (14:50)
[2024-04-18] MEDS ORDERED: IODIXANOL 320 MG/ML 100 ML VIAL ONE (14:50)
[2024-04-18] MEDS ORDERED: HEParin-NS 1,000 UNIT/500 ML 1,000 ML IV ONE (14:51)
[2024-04-18] MEDS ORDERED: HEParin 10,000 UNIT/10ML (1,000 UNIT/ML) VIAL ONE (14:51)
[2024-04-18] MEDS ORDERED: NITROGLYCERIN 50MG VIAL ONE (14:53)
[2024-04-18] MEDS ORDERED: FENTanyl CITRate PF 50 MCG/1 ML 2ML VIAL ONE (15:13)
[2024-04-18] MEDS ORDERED: MIDAZOLAM HCL 1 MG/ML 2ML VIAL ONE (15:13)
[2024-04-19] VITALS (43 sets, daily range): BP systolic 124–171; BP diastolic 51–79; PULSE 59–77; RESP 15–20; TEMP 97.2–98.7; O2SAT 92–96
[2024-04-19] MEDS ORDERED: GLUCAGON 1MG KIT 1 MG ML IM PRN (00:30)
[2024-04-19] MEDS ORDERED: DEXTROSE 50%-WATER 50 ML DISP.SYRIN IV PRN (00:30)
[2024-04-19] MEDS: BENZONATATE 100 MG CAPSULE PO PRN (02:30)
[2024-04-19] MEDS: hydroMORPHone 0.5 MG SYG (0.5MG/0.5ML) IVP PRN (02:31)
[2024-04-19 05:53] LABS: BASOPHILS # (AUTO) 0.07 K/uL (0.00-0.20); BASOPHILS % (AUTO) 0.5 % (0.0-5.0); EOSINOPHILS # (AUTO) 0.18 K/uL (0.00-0.70); EOSINOPHILS % (AUTO) 1.2 % (0.0-8.0); HEMATOCRIT 23.3 % (42-54); IMMATURE GRANULOCYTE ABSOLUTE 0.14 K/uL (0-1); LYMPHOCYTES % (AUTO) 6.4 % (21.0-51.0); MEAN CORPUSCULAR HEMOGLOBIN 30.3 pg (27.0-33.0); MEAN CORPUSCULAR HGB CONC 31.3 g/dL (32.0-36.0); MEAN CORPUSCULAR VOLUME 96.7 fL (79-99); MONOCYTES # (AUTO) 1.5 K/uL (0.1-1.0); MONOCYTES % (AUTO) 9.6 % (3.0-13.0); NEUTROPHILS # (AUTO) 12.4 K/uL (1.8-7.7); NEUTROPHILS % (AUTO) 81.4 % (40.0-77.0); PLATELET COUNT (AUTO) 386 K/uL (130-400); RED BLOOD CELL COUNT(AUTO) 2.41 MIL/uL (4.50-6.20); RED CELL DISTRIBUTION WIDTH 16.9 % (11.0-15.5); WHITE BLOOD COUNT (AUTO) 15.3 K/uL (4.8-10.8)
[2024-04-19 06:08] LABS: CREATININE 7.8 mg/dL (0.5-1.3); MAGNESIUM 2.2 mg/dL (1.80-2.40); POTASSIUM 4.5 mmol/L (3.5-5.1)
[2024-04-19 06:17] LABS: VANCOMYCIN TROUGH 29.4 UG/ML (10.0-20.0)
[2024-04-19 06:27] LABS: INR 1.07 (0.85-1.15); PROTHROMBIN TIME 11.5 SEC (9.6-11.6)
[2024-04-19] MEDS ORDERED: ondanSETRON 4MG INJ ONE (07:00)
[2024-04-19] MEDS ORDERED: proPOFol 10 MG/ML 20ML VIAL IV ONE (07:00)
[2024-04-19] MEDS ORDERED: LIDOCAINE PF 100MG/5ML (2%) SYRINGE 5ML ONE (07:00)
[2024-04-19] MEDS ORDERED: MIDAZOLAM HCL 1 MG/ML 2ML VIAL ONE (07:00)
[2024-04-19] MEDS ORDERED: FENTanyl CITRate PF 50 MCG/1 ML 2ML VIAL ONE (07:00)
[2024-04-19] MEDS ORDERED: dexaMETHasone SOD PHOSPHATE 4 MG/ML 1ML VIAL ONE (07:00)
[2024-04-19] MEDS ORDERED: phenylEPHRINE HCL 10 MG/ML 1ML VIAL IV ONE (07:01)
[2024-04-19] MEDS: LIDOCAINE HCL 1% 20 ML VIAL ONE (07:30)
[2024-04-19] MEDS: BUPIvacaine/PF 0.5% 30ML VIAL ONE (07:30)
[2024-04-19 10:05] LABS: HEPATITIS C ANTIBODY Reactive (Nonreactive)
[2024-04-19] MEDS: INSULIN GLARgine 100 UNITS/ML 10 ML VIAL SQ SCH (20:42)
[2024-04-20] VITALS (11 sets, daily range): BP systolic 141–151; BP diastolic 54–69; PULSE 65–74; RESP 18–20; TEMP 97.8–98.9; O2SAT 94–100
[2024-04-20] MEDS: ondanSETRON 4MG INJ IVP PRN (05:58)
[2024-04-20 06:19] LABS: BASOPHILS # (AUTO) 0.04 K/uL (0.00-0.20); BASOPHILS % (AUTO) 0.2 % (0.0-5.0); EOSINOPHILS # (AUTO) 0.01 K/uL (0.00-0.70); EOSINOPHILS % (AUTO) 0.1 % (0.0-8.0); HEMATOCRIT 28.4 % (42-54); IMMATURE GRANULOCYTE ABSOLUTE 0.13 K/uL (0-1); LYMPHOCYTES # (AUTO) 0.7 K/uL (1.0-4.8); LYMPHOCYTES % (AUTO) 4.1 % (21.0-51.0); MEAN CORPUSCULAR HEMOGLOBIN 31.2 pg (27.0-33.0); MEAN CORPUSCULAR VOLUME 97.3 fL (79-99); MONOCYTES % (AUTO) 6.1 % (3.0-13.0); NEUTROPHILS # (AUTO) 14.9 K/uL (1.8-7.7); NEUTROPHILS % (AUTO) 88.7 % (40.0-77.0); PLATELET COUNT (AUTO) 477 K/uL (130-400); RED BLOOD CELL COUNT(AUTO) 2.92 MIL/uL (4.50-6.20); RED CELL DISTRIBUTION WIDTH 16.4 % (11.0-15.5); WHITE BLOOD COUNT (AUTO) 16.8 K/uL (4.8-10.8)
[2024-04-20 06:30] LABS: CREATININE 6.1 mg/dL (0.5-1.3); POTASSIUM 4.1 mmol/L (3.5-5.1)
[2024-04-20] MEDS: INSULIN GLARgine 100 UNITS/ML 10 ML VIAL SQ SCH (08:22)
[2024-04-20] MEDS: LORazepam 2 MG/ML 1 ML VIAL IVP PRN (11:25)
[2024-04-21] VITALS (21 sets, daily range): BP systolic 127–161; BP diastolic 58–73; PULSE 57–73; RESP 16–20; TEMP 97.5–98.6; O2SAT 98–99
[2024-04-21 05:26] LABS: BASOPHILS # (AUTO) 0.04 K/uL (0.00-0.20); BASOPHILS % (AUTO) 0.2 % (0.0-5.0); EOSINOPHILS # (AUTO) 0.11 K/uL (0.00-0.70); EOSINOPHILS % (AUTO) 0.7 % (0.0-8.0); HEMATOCRIT 26.8 % (42-54); IMMATURE GRANULOCYTE ABSOLUTE 0.12 K/uL (0-1); LYMPHOCYTES % (AUTO) 6.1 % (21.0-51.0); MEAN CORPUSCULAR HEMOGLOBIN 31.1 pg (27.0-33.0); MEAN CORPUSCULAR HGB CONC 32.5 g/dL (32.0-36.0); MEAN CORPUSCULAR VOLUME 95.7 fL (79-99); MONOCYTES # (AUTO) 1.3 K/uL (0.1-1.0); MONOCYTES % (AUTO) 7.9 % (3.0-13.0); NEUTROPHILS # (AUTO) 13.9 K/uL (1.8-7.7); NEUTROPHILS % (AUTO) 84.4 % (40.0-77.0); PLATELET COUNT (AUTO) 477 K/uL (130-400); RED CELL DISTRIBUTION WIDTH 16.5 % (11.0-15.5); WHITE BLOOD COUNT (AUTO) 16.4 K/uL (4.8-10.8)
[2024-04-21 05:41] LABS: ALBUMIN 1.8 g/dL (3.5-5.0); BILIRUBIN,TOTAL 0.5 mg/dL (0.2-1.0); CREATININE 7.1 mg/dL (0.5-1.3); MAGNESIUM 2.3 mg/dL (1.80-2.40); PHOSPHORUS 5.3 mg/dL (2.5-4.9); POTASSIUM 4.4 mmol/L (3.5-5.1); TOTAL PROTEIN, SERUM 7.9 g/dL (6.0-8.3)
[2024-04-21 05:57] LABS: WBC MORPHOLOGY CONSISTENT W/DIFF
[2024-04-21] MEDS: PANTOPrazole 40 MG/VIAL IVP SCH (08:45)
[2024-04-21] MEDS: 0.9%NACL 1000ML 1,000 ML IV SCH (14:30)
[2024-04-21 14:50] LABS: INR 1.11 (0.85-1.15); PROTHROMBIN TIME 11.9 SEC (9.6-11.6)
[2024-04-21] MEDS: metRONIDazole 500MG/100ML BAG 100 ML IVPB SCH (21:11)
[2024-04-22] VITALS (8 sets, daily range): BP systolic 129–156; BP diastolic 55–74; PULSE 70–74; RESP 17–20; TEMP 97.1–99.3; O2SAT 94–96
[2024-04-22 05:03] LABS: MEAN CORPUSCULAR HEMOGLOBIN 30.1 pg (27.0-33.0); MEAN CORPUSCULAR HGB CONC 31.1 g/dL (32.0-36.0); MEAN CORPUSCULAR VOLUME 96.8 fL (79-99); NUCLEATED RED BLOOD CELLS 0.1 % (0.0-0.19); RED BLOOD CELL COUNT(AUTO) 2.79 MIL/uL (4.50-6.20); RED CELL DISTRIBUTION WIDTH 16.4 % (11.0-15.5); WHITE BLOOD COUNT (AUTO) 16.6 K/uL (4.8-10.8)
[2024-04-22 05:10] LABS: CREATININE 4.9 mg/dL (0.5-1.3); PHOSPHORUS 3.7 mg/dL (2.5-4.9); POTASSIUM 4.6 mmol/L (3.5-5.1)
[2024-04-22] MEDS: hydroMORPHone 0.5 MG SYG (0.5MG/0.5ML) IVP ONE (09:55)
== END 2024-04-22 21:34 | DRG 853 ==
LOC: EDH 22:47 → OBSVTOIN 04-14 02:21 → EDHIP 04-14 02:21 → 3BH 04-14 04:21
PROVIDERS: ADMIT Internal Medicine; ATTEND Internal Medicine
PROC: 5A1D70Z Performance of Urinary Filtration, Intermittent, Less than 6 Hours Per Day (ICD-10-PCS; 2024-04-14)
PROC: 5A1D70Z Performance of Urinary Filtration, Intermittent, Less than 6 Hours Per Day (ICD-10-PCS; 2024-04-16)
PROC: 5A1D70Z Performance of Urinary Filtration, Intermittent, Less than 6 Hours Per Day (ICD-10-PCS; 2024-04-19)
PROC: 0J9Q0ZZ Drainage of Right Foot Subcutaneous Tissue and Fascia, Open Approach (ICD-10-PCS; 2024-04-19)
PROC: 0QBL0ZZ Excision of Right Tarsal, Open Approach (ICD-10-PCS; principal; 2024-04-19 07:15)
PROC: 5A1D70Z Performance of Urinary Filtration, Intermittent, Less than 6 Hours Per Day (ICD-10-PCS; 2024-04-21)
DX: A41.9 Sepsis, unspecified organism (principal); I50.33 Acute on chronic diastolic (congestive) heart failure; J96.01 Acute respiratory failure with hypoxia; N18.6 End stage renal disease; I13.2 Hypertensive heart and chronic kidney disease with heart failure and with stage 5 chronic kidney disease, or end stage renal disease; E11.52 Type 2 diabetes mellitus with diabetic peripheral angiopathy with gangrene; M86.8X7 Other osteomyelitis, ankle and foot; L02.611 Cutaneous abscess of right foot; L97.419 Non-pressure chronic ulcer of right heel and midfoot with unspecified severity; E11.69 Type 2 diabetes mellitus with other specified complication; E87.5 Hyperkalemia; D63.1 Anemia in chronic kidney disease; E11.65 Type 2 diabetes mellitus with hyperglycemia; E11.621 Type 2 diabetes mellitus with foot ulcer; E11.22 Type 2 diabetes mellitus with diabetic chronic kidney disease; L97.519 Non-pressure chronic ulcer of other part of right foot with unspecified severity; E66.9 Obesity, unspecified; Z20.822 Contact with and (suspected) exposure to COVID-19; E87.8 Other disorders of electrolyte and fluid balance, not elsewhere classified; F32.A Depression, unspecified; F41.9 Anxiety disorder, unspecified; Z79.82 Long term (current) use of aspirin; Z79.899 Other long term (current) drug therapy; Z83.3 Family history of diabetes mellitus; Z86.11 Personal history of tuberculosis; Z99.2 Dependence on renal dialysis; Z86.16 Personal history of COVID-19; Z91.199 Patient's noncompliance with other medical treatment and regimen due to unspecified reason
CPT/HCPCS: 36246; 36247; 36415; 36600; 71045; 71270; 73630; 73718; 75716; 80048; 80053; 80061; 80202; 82306; 82550; 82607; 82803; 82947; 82948; 83036; 83605; 83735; 83880; 84100; 84145; 84443; 84484; 85025; 85027; 85378; 85610; 85651; 85730; 86140; 86704; 86706; 86803; 87040; 87070; 87076; 87086; 87186; 87205; 87340; 87420; 87522; 87635; 87804; 87880; 88304; 88311; 90935; 93005; 93925; 94640; 94664; 99156; 99157; 99291; C1760; C1894; G0378; J0692; J1100; J1170; J1610; J1644; J1815; J2001; J2060; J2250; J2270; J2371; J2405; J2470; J2543; J2704; J3010; J3370; J3490; J7040; Q9967; A4216; A4222; A4223; A6446; C1769; J0665; Q5106

== ENCOUNTER 2024-07-28 04:41 | Inpatient (IN) | payer OTHER, MEDICARE ==
[2024-07-28] VITALS (21 sets, daily range): BP systolic 152–177; BP diastolic 64–80; PULSE 51–66; RESP 14–24; TEMP 97.7–98.3; O2SAT 97–98
[~2024-07-28] VITALS: Ht 129.5 cm; Wt 54.4 kg
[~2024-07-28 04:41] MED LIST changes: +ASCO500C18 PO; -ASPI-1197 PO; +ATOR40TA69 PO; -CLON-353 PO; +CLOP75TA32 PO; +DOCU100C33 PO; +FOLI1TAB85 PO; -HYDR50TA37 PO; -LISI40TA9 PO; +OMEP20CA12 PO; -PHOSLOC PO; -PIOG15TA66 PO; +SEVE800T27 PO; -SODI650T PO
--- NOTE | 2024-07-28 05:01 | ERN ---
ED Note History of Present Illness Stated Complaint: SHORTNESS OF BREATH, SWELLING Chief Complaint: Shortness of Breath Time Seen by MD: 04:43 Dictation: Mr. Wang is a 58-year-old male with frequent admissions and history of medical noncompliance came into the ER complaining of increasing shortness of breath orthopnea and swelling of the face. He also complained of pain in the stumps of his BKA he stated that he went for hemodialysis on Thursday which was 4 3-1/2 hours. He has a known history of recreational drug abuse. At presentation his blood pressure was 202/92 heart rate 63 respirations 16 temperature 98 pulse oximetry 99% on room air His chronic medical problems include diabetes mellitus, hypertension, end-stage renal disease on hemodialysis Thursday and Thursday schedule, depression, cocaine abuse., chronic anemia related to kidney disease Allergies: Coded Allergies: No Known Drug Allergies (Unverified Allergy, Unknown, 05/07/21) Home Meds Reported Medications Clopidogrel Bisulfate (Clopidogrel) 75 Mg Tablet, 1 TAB PO DAILY for 30 Days, #30 TAB 0 Refills 07/13/24 Ascorbic Acid (Vitamin C) 500 Mg Capsule, 500 MG PO BID, CAP 07/13/24 Sevelamer HCl (Sevelamer HCl) 800 Mg Tablet, 800 MG PO TID, TAB 24 Vit B Cmplx 3/FA/Vit C/Biotin (Melissa-Aman Rx Tablet) 1 Mg-60 Mg-300 Mcg Tablet, 1 TAB PO DAILY for 30 Days, #30 TAB 0 Refills 24 Omeprazole (Omeprazole) 20 Mg Capsule.dr, 1 CAP PO DAILY for 30 Days, #30 CAP 0 Refills 24 Docusate Sodium (Docusate Sodium) 100 Mg Capsule, 1 CAP PO BID for constipation for 7 Days, #14 CAP 0 Refills 24 Atorvastatin Calcium (LIPITOR) 40 Mg Tablet, 1 TAB PO HS for 30 Days, #30 TAB 0 Refills 24 Clopidogrel Bisulfate (Clopidogrel) 75 Mg Tablet, 75 MG PO DAILY, TAB 04/14/24 Amlodipine Besylate (Amlodipine Besylate) 10 Mg Tablet, 10 MG PO DAILY for 30 Days, #30 TAB 0 Refills 05/07/21 Past Medical History Past Medical History: CHF, Depression, Diabetes-Type II, Hypertension, Renal Failure Surgical History: Other (Bilateral below-knee amputations March 29, 2024 at [facility]) Surgical History Other: Amputation of his lower extremities [id number] PSYCH History: depression Social History: Drugs RN Note Reviewed/Agreed w/PFSH: Yes Review of System Dictation Constitutional: Negative for fever,chills, and weight loss Eyes: Negative for injury, pain,redness, and discharge ENT: Negative for injury,pain or swelling Cardiovascular: Negative for chest pain, palpitations, and positive edema and PND and orthopnea Respiratory: Positive for shortness of breath, mild cough, and wheezing, Abdomen/GI: Negative for abdominal pain, nausea, vomiting, diarrhea, and constipation Back: Negative for injury and pain : Negative for injury, bleeding and discharge MS/Extremity: Negative for injury and deformity complains of pain in the bilateral stumps more left side Skin: Negative for rash, and discoloration Neuro: Negative for headache, weakness, numbness, tingling, and seizure Psych: Negative for suicide ideation, homicidal ideation, and hallucinations Initial Vital Sign VS Vital Signs Date Time Temp Pulse Resp B/P (MAP) Pulse Ox O2 Delivery O2 Flow Rate FiO2 07/28/24 04:42 98.1 63 16 202/92 99 Nasal Cannula 2.0 07/28/24 05:21 28 Physical Exam Dictation General: awake, alert, NAD chronically ill-appearing orthopneic Head/Face: Normocephalic, atraumatic Eyes: PERRL, EOMI, vision at baseline ENT: oral cavity clear, TMs clear, no signs of infection Neck: Trachea midline, supple, no nuchal rigidity Cardiovascular: RRR, normal S1/S2, No MRGs, no JVD Respiratory: CTAB, no respiratory distress, No rales or wheezes Abdomen: Soft, non-tender, non-distended, normal bowel sounds, no guarding or rebound. Skin: Warm, dry, normal turgor, no rash MS/Extremity: Pulses reduced no cyanosis, neurovascular intact, FROM Neuro: COAx4, GCS 15, strength 5/5, CN 2-12 intact, normal cerebellar exam, normal gait, Psych: Normal behavior, mood, and affect normal Extremities-trace edema without any palpable cords, Homans sign is negative bilateral below-knee amputations both stumps have dressing, small amount of drainage from the left stump Results (Laboratory/Radiology) Laboratory/Radiology Laboratory Tests Test 07/28/24 05:30 White Blood Count 7.6 K/uL (4.8-10.8) Red Blood Count 3.48 MIL/uL (4.50-6.20) L Hemoglobin 10.7 g/dL (14.0-18.0) L Hematocrit 33.3 % (42-54) L Mean Corpuscular Volume 95.7 fL (79-99) Mean Corpuscular Hemoglobin 30.7 pg (27.0-33.0) Mean Corpuscular Hemoglobin Concent 32.1 g/dL (32.0-36.0) Red Cell Distribution Width 18.0 % (11.0-15.5) H Platelet Count 256 K/uL (130-400) Mean Platelet Volume 10.0 fL (7.5-10.5) Immature Granulocyte % (Auto) 0.3 % (0-1) Neutrophils (%) (Auto) 68.9 % (40.0-77.0) Lymphocytes (%) (Auto) 15.1 % (21.0-51.0) L Monocytes (%) (Auto) 10.4 % (3.0-13.0) Eosinophils (%) (Auto) 3.7 % (0.0-8.0) Basophils (%) (Auto) 1.6 % (0.0-5.0) Neutrophils # (Auto) 5.3 K/uL (1.8-7.7) Lymphocytes # (Auto) 1.2 K/uL (1.0-4.8) Monocytes # (Auto) 0.8 K/uL (0.1-1.0) Eosinophils # (Auto) 0.28 K/uL (0.00-0.70) Basophils # (Auto) 0.12 K/uL (0.00-0.20) Absolute Immature Granulocyte (auto 0.02 K/uL (0-1) Nucleated Red Blood Cells 0.0 % (0.0-0.19) Red Blood Cell Morphology See comments Sodium Level 139 mmol/L (136-145) Potassium Level 5.3 mmol/L (3.5-5.1) H Chloride Level 104 mmol/L (101-111) Carbon Dioxide Level 25 mmol/L (21-32) Blood Urea Nitrogen 54 mg/dL (7-18) H Creatinine 5.2 mg/dL (0.5-1.3) H Glomerular Filtration Rate Calc 12 mL/min (>90) Random Glucose 129 mg/dL (70-105) H Total Calcium 8.8 mg/dL (8.5-10.1) B-Type Natriuretic Peptide 4140 pg/mL (0-100) H Labs Reviewed?: Yes EKG Comment: Twelve lead EKG done on 07/28/2024 at 5:27 a.m. showed a heart rate of 66, CT interval 197, QRS 90, QT/QTC 418/440. Impression normal sinus rhythm with no acute ST elevations or deep ST depressions noted. Interpreted by ED Course ED Course Orders Procedure Category Date Status Time Cbc With Differential LAB 07/28/24 Complete 05:00 Basic Metabolic Panel LAB 07/28/24 Complete 05:00 B-Type Natriuretic LAB 07/28/24 Complete Peptide 05:00 12 Lead Ekg Tracing- EKG 07/28/24 Logged Technical 05:00 Chest 1vw RAD 07/28/24 Taken 05:00 Hydromorphone 0.5mg PHA 07/28/24 Complete Syg (Dilaudid 0.5mg 05:30 Bipap Settings RT 07/28/24 Transmitted 05:13 Hydralazine 20mg Inj PHA 07/28/24 Complete (Apresoline 20mg In 06:30 Edm Admit Bridge Order ADM 07/28/24 Transmitted 06:31 Admit Orders ADM 07/28/24 Transmitted 06:31 Current Medications Medications (Trade) Dose Ordered Sig/Anthony Route PRN Reason Start Time Stop Time Status Last Admin Dose Admin Hydralazine HCl (APRESOLine 20MG INJ) 20 mg ONCE ONCE IM 07/28/24 06:30 07/28/24 06:31 DC Hydromorphone HCl (DiLAUDid 0.5MG INJ) 0.5 mg ONCE ONCE IVP 07/28/24 05:30 07/28/24 05:31 DC 07/28/24 05:46 Vital Signs Date Time Temp Pulse Resp B/P (MAP) Pulse Ox O2 Delivery O2 Flow Rate FiO2 07/28/24 05:44 24 36 07/28/24 05:21 98.1 64 20 184/73 100 Nasal Cannula* 2 28 07/28/24 04:42 98.1 63 16 202/92 99 Nasal Cannula 2.0 We will perform diagnostic labs, advanced imaging and administer medications according to the patient's complaint. Once the results are available, will review and personally interpreted the labs to rule out any acute life- threatening emergency the trach require immediate intervention and treatment. I will then re-evaluate the patient after treatment and diagnostic exams have return to determine whether the patient requires any further testing, can safely be discharged home or need further admission to hospital for additional treatment and evaluation. Medical Decision Making MDM MDM: Differential diagnosis: Congestive heart failure, pulmonary edema from inadequate dialysis, hypertensive emergency with flash pulmonary edema Rationale: Tests considered and ordered secondary to shared decision making include: labs, ECG and radiology Previous outside records reviewed: Old ER visits. Risk of complication and/or morbidity or mortality of patient management: None Medications-Per medication reconciliation Need for hospitalization: Patient does meet criteria for hospitalization. Need for emergency major/minor surgery: No There are no social concerns with this patient. Prescription drug management Prescriptions will include symptomatic care Patient's prior external medical records from other ER visits were reviewed by me as indicated. Prior testing and results from previous visits were reviewed. Prior tests were taken into account with medical decision making and resource utilization, independent historian/historians were used to obtain complete medical history. I independently interpreted the test that were performed, results were reviewed by me and considered findings on radiology if ordered. Medical management and examination interpretation discussions were had by me with other qualified healthcare professionals as indicated for the patient's care. Problem List Problem List: (1) Acute on chronic congestive heart failure with left ventricular diastolic dysfunction (2) End-stage renal disease on hemodialysis (3) Severe peripheral arterial disease (4) Status post below-knee amputation of both lower extremities (5) Anemia of chronic disease (6) Chronic pain DX & DISP Disposition: Inpatient Decision to Admit Time: 06:12 Departure Impression: Primary Impression: Acute on chronic congestive heart failure with left ventricular diastolic dysfunction Additional Impressions: End-stage renal disease on hemodialysis, Severe peripheral arterial disease, Status post below-knee amputation of both lower extremities, Anemia of chronic disease, Chronic pain, Hyperkalemia Condition: Stable Additional Instructions: Patient was informed of all the diagnostic labs and procedures conducted in the emergency room today and demonstrated understanding of the results. I personally reviewed and interpreted all the diagnostic exams performed in the ER today. The patient will be admitted to the hospital for further treatment and evaluation. Disposition-admit to facility Condition-stable/guarded Course-uncertain at this time Pain status-decreased Assessment-exam unchanged Admission Certification- I certify that the patients status is appropriate and is based on my best clinical judgment and the patient's condition as documented in the medical records Referrals: ELICEO RAY MD (PCP) TAMAR QUIROGA MD Jul 28, 2024 05:01
[2024-07-28 05:42] LABS: BASOPHILS # (AUTO) 0.12 K/uL (0.00-0.20); BASOPHILS % (AUTO) 1.6 % (0.0-5.0); EOSINOPHILS # (AUTO) 0.28 K/uL (0.00-0.70); EOSINOPHILS % (AUTO) 3.7 % (0.0-8.0); HEMATOCRIT 33.3 % (42-54); IMMATURE GRANULOCYTE ABSOLUTE 0.02 K/uL (0-1); LYMPHOCYTES # (AUTO) 1.2 K/uL (1.0-4.8); LYMPHOCYTES % (AUTO) 15.1 % (21.0-51.0); MEAN CORPUSCULAR HEMOGLOBIN 30.7 pg (27.0-33.0); MEAN CORPUSCULAR HGB CONC 32.1 g/dL (32.0-36.0); MEAN CORPUSCULAR VOLUME 95.7 fL (79-99); MONOCYTES # (AUTO) 0.8 K/uL (0.1-1.0); MONOCYTES % (AUTO) 10.4 % (3.0-13.0); NEUTROPHILS # (AUTO) 5.3 K/uL (1.8-7.7); NEUTROPHILS % (AUTO) 68.9 % (40.0-77.0); PLATELET COUNT (AUTO) 256 K/uL (130-400); RED BLOOD CELL COUNT(AUTO) 3.48 MIL/uL (4.50-6.20); WHITE BLOOD COUNT (AUTO) 7.6 K/uL (4.8-10.8)
[2024-07-28] MEDS: hydroMORPHone 0.5 MG SYG (0.5MG/0.5ML) IVP ONE (05:46)
--- NOTE | 2024-07-28 05:50 | NUR ---
patient refused bipap, Dr Smith informed, patient placed on O2 4 L nasal canula.
[2024-07-28 05:52] LABS: CREATININE 5.2 mg/dL (0.5-1.3); POTASSIUM 5.3 mmol/L (3.5-5.1)
[2024-07-28 06:04] LABS: B-TYPE NATRIURETIC PEPTIDE 4140 pg/mL (0-100)
[2024-07-28] MEDS ORDERED: TEMAZepam 15 MG CAPSULE PO PRN (07:00)
[2024-07-28] MEDS ORDERED: ALBUTEROL 0.083% 2.5 MG/3 ML INH IH PRN (07:00)
[2024-07-28] MEDS ORDERED: doCUSate SODIUM 100 MG CAP PO PRN (07:00)
[2024-07-28] MEDS ORDERED: acetaMINOPHEN 650 MG SUPPOSITORY RC PRN (07:00)
[2024-07-28] MEDS: NITROGLYCERIN 1GM OINT 1 INCH/1GM TD SCH (07:00)
[2024-07-28] MEDS ORDERED: LACTULOSE 20 GM/30 ML UDCUP PO PRN (07:00)
[2024-07-28] MEDS ORDERED: ondanSETRON 4MG INJ IVP PRN (07:00)
[2024-07-28] MEDS ORDERED: hydrALAZine 20MG/ML VIAL IV PRN (07:00)
[2024-07-28] MEDS ORDERED: acetaMINOPHEN 325 MG TAB PO PRN (07:00)
[2024-07-28] MEDS: cloNIDine HCL 0.2 MG TABLET PO ONE (07:00)
--- NOTE | 2024-07-28 07:03 | NUR ---
report given to charge Charlee BURDICK
[2024-07-28] MEDS: INSULIN humuLIN R 100 UNIT/ML 3ML SQ SCH (07:30)
[2024-07-28] MEDS: kayEXALate 15GM/60ML RC ONE (07:30)
[2024-07-28] MEDS: hydrALAZine 20MG/ML VIAL IM ONE (08:13)
--- NOTE | 2024-07-28 08:32 | HP ---
[facility] HISTORY & PHYSICAL Date Patient Seen: Jul 28, 2024 Time of Visit: 08:31 Supervising Physician: Satish Wang MD Primary Care Physician: Dave Johnson MD Outpatient Specialists: Dr Thakur Inpatient Consults: Dr Thakur , Wound care PROBLEM LIST: Acute hypoxic respiratory failure, POA Acute on chronic diastolic heart failure with the EF 55% on 2D echo 03/2024 ESRD on HD (TTS) via RUE AV fistula, POA Hypokalemia, POA Bilateral AKA down in POA Anemia of chronic illness Hyperglycemia in the presence of type 2 diabetes mellitus, POA Hypertensive urgency, POA History of tuberculosis, cocaine and marijuana abuse, noncompliance to medical treatment HPI: This is a 58-year-old chronically ill male with a history of noncompliance to medical regimen, type 2 diabetes mellitus, Bila AKA stump wounds, ESRD on hemodialysis T,,S, essential hypertension, and drug abuse who presented to the emergency department for complaints of shortness breath, orthopnea and swelling to the face. Patient also complain of pain to bilateral BKA stumps with chronic wounds. Patient reports he went to dialysis four days ago on Thursday. He arrived to the emergency department with a blood pressure of 202/92 with a heart rate of 63 respiratory rate of 16 saturating 99% with 2 L via nasal cannula and afebrile. On laboratory H&H is 10.7/33.3 platelet count is 201090. He denies any GI bleed. Chemistry potassium was 5.3 initially BUN 54 creatinine was two random glucose 129 mg/dL he was given one dose of Lokelma 10 mg p.o.. On chest x-ray bilateral pulmonary infiltrates are seen suggestive of pulmonary vascular congestion with possible superimposed pneumonitis, consistent with pulmonary edema. BNP 4140. Patient is negative for influenza type a and B SARS COVID-19 and strep throat. Nephrology was consulted who recommended for hemodialysis the patient tolerated hemodialysis well 3.5 L. consulted Wound Care for bilateral AKA wounds. PAST MEDICAL HX: Type 2 diabetes mellitus Hypertension ESRD Depression Chronic anemia related to chronic illness. PAST SURGICAL HX: Right upper extremity AV fistula Amputation lower extremities bila AKA SOCIAL HISTORY: History of cocaine and marijuana use. Coded Allergies: No Known Drug Allergies (Unverified Allergy, Unknown, 05/07/21) REVIEW OF SYSTEMS: Const: [no fever, fatigue, or weight changes] Eyes:[ no recent vision problems] ENT: [No congestion, ear pain, or sore throat] C/V: [no chest pain, palpitations or edema] Resp: No cough, congestion, wheezing yes for shortness of breaths at rest GI: [No abdominal pain, nausea, vomiting, constipation, or diarrhea] : [No incontinence of or dyuria] M/S: Bilateral AKA stump wound pain. Skin: [No rash] Neuro: [no headache, focal numbness, or weakness, dizziness or seizures] Psych: [no depression or anxiety] Heme: [no abnormal bruising or bleeding] Lymph: [no swollen glands] PHYSICAL EXAM: GENERAL: alert, weak, awake oriented x 3 HEENT: EOMI, Sclera non icteric, moist mucosa NECK: Supple, no JVD, trachea midline LUNGS: Diminished breath sounds bilaterally. No wheezes HEART: Regular rate and rhythm. Normal S1 and S2, without murmurs ABD: Abdomen soft, nontender. Bowel sounds present EXT: No clubbing cyanosis or edema, right upper extremity AV fistula, bilateral AKA NEURO: Alert and oriented to person, follows commands Vital Signs (last 8hr) Date Time Temp Pulse Resp B/P (MAP) Pulse Ox O2 Delivery O2 Flow Rate FiO2 07/28/24 08:18 97.7 63 16 185/55 100 Nasal Cannula* 3 32 07/28/24 07:22 64 24 N/Cannula Low lpm 2.0 36 07/28/24 05:44 24 36 07/28/24 05:21 98.1 64 20 184/73 100 Nasal Cannula* 2 28 07/28/24 04:42 98.1 63 16 202/92 99 Nasal Cannula 2.0 LABS: Hematology Labs: Test 07/28/24 05:30 Range/Units White Blood Count 7.6 4.8-10.8 K/uL Red Blood Count 3.48 L 4.50-6.20 MIL/uL Hemoglobin 10.7 L 14.0-18.0 g/dL Hematocrit 33.3 L 42-54 % Mean Corpuscular Volume 95.7 79-99 fL Mean Corpuscular Hemoglobin 30.7 27.0-33.0 pg Mean Corpuscular Hemoglobin Concent 32.1 32.0-36.0 g/dL Red Cell Distribution Width 18.0 H 11.0-15.5 % Platelet Count 256 130-400 K/uL Mean Platelet Volume 10.0 7.5-10.5 fL Immature Granulocyte % (Auto) 0.3 0-1 % Neutrophils (%) (Auto) 68.9 40.0-77.0 % Lymphocytes (%) (Auto) 15.1 L 21.0-51.0 % Monocytes (%) (Auto) 10.4 3.0-13.0 % Eosinophils (%) (Auto) 3.7 0.0-8.0 % Basophils (%) (Auto) 1.6 0.0-5.0 % Neutrophils # (Auto) 5.3 1.8-7.7 K/uL Lymphocytes # (Auto) 1.2 1.0-4.8 K/uL Monocytes # (Auto) 0.8 0.1-1.0 K/uL Eosinophils # (Auto) 0.28 0.00-0.70 K/uL Basophils # (Auto) 0.12 0.00-0.20 K/uL Absolute Immature Granulocyte (auto 0.02 0-1 K/uL Nucleated Red Blood Cells 0.0 0.0-0.19 % Red Blood Cell Morphology See comments Chemistry Labs: Test 07/28/24 08:19 07/28/24 05:30 Range/Units Whole Blood Glucose 106 70-110 MG/DL Sodium Level 139 136-145 mmol/L Potassium Level 5.3 H 3.5-5.1 mmol/L Chloride Level 104 101-111 mmol/L Carbon Dioxide Level 25 21-32 mmol/L Blood Urea Nitrogen 54 H 7-18 mg/dL Creatinine 5.2 H 0.5-1.3 mg/dL Glomerular Filtration Rate Calc 12 >90 mL/min Random Glucose 129 H 70-105 mg/dL Total Calcium 8.8 8.5-10.1 mg/dL B-Type Natriuretic Peptide 4140 H 0-100 pg/mL DIAGNOSTICS / RADIOLOGY RESULTS: IMAGING REPORT Signed PATIENT: MEGHA WANG MR#: [id number] : 1965 SEX: M AGE: 58 LOCATION: [facility] ORDER [id number] STATUS: ADM IN REPORT#: [id number] SERVICE 0500 REASON: chf ORDERING PHYSICIAN: TAMAR QUIROGA MD PROCEDURE: CXR1VW - CHEST 1VW CHEST 1VW HISTORY: CHF COMPARISON: 04/17/2024 FINDINGS: A frontal projection of the chest was obtained. There are bilateral pulmonary infiltrates suggestive of pulmonary vascular congestion with possible superimposed pneumonitis. The heart is borderline enlarged. Degenerative changes are seen. No evidence of aortic calcification is seen. IMPRESSION: 1. Bilateral pulmonary infiltrates are seen suggestive of pulmonary vascular congestion with possible superimposed pneumonitis. DICTATED BY: JIN CAPELLAN MD DATE: 07/28/24 111 ELECTRONICALLY SIGNED BY: JIN CAPELLAN MD DATE: 07/28/24 1122 PLAN NEURO: Minimize central acting medications as possible. Maintain fall precautions, adequate lighting during the day PULMONARY: Supplemental 02 as needed. Maintain aspiration precautions at all times Maintain O2 sats above 92% Wean O2 as tolerated CARDIOVASCULAR: Follow hemodynamics. Vital signs per facility protocol Telemetry monitoring GI & NUTRITION: Continue with nutritional support. Continue stool softeners and laxatives as needed. Renal diet KIDNEYS & ELECTROLYTES: Strict monitoring of intake, output and overall fluid balance. Avoid nephrotoxic medications to the extent possible. Medications to be dosed according to renal function. Monitor electrolytes and replace as needed Lokelma x1 dose now. Monitor electrolytes and replace per cover accordingly. Consult Nephrology follow recommendations dialysis. ENDOCRINE: Maintain blood glucose between 100-180 at all times. Hypoglycemia protocol in place INFECTIOUS DISEASE: Trend temperature, WBC and procalcitonin level Follow cultures, deescalate antibiotics as soon as possible. Panculture if new onset fever ONCOLOGY/HEMATOLOGY/COAGULATION: Monitor for s/s of bleeding Monitor hemoglobin, coagulation studies as needed SKIN: Pressure ulcer prevention per facility protocol Specialty mattress ORTHO/REHAB: Continue PT/OT Prophylaxis: Continue GI and DVT prophylaxis Code Status: Full Resuscitation Disposition: TBD Other: Total patient care time exceeds 35 minutes excluding all procedures. KAILEY JJ Jul 28, 2024 08:31
--- NOTE | 2024-07-28 08:49 | EKG ---
[facility] Test Date: 2024-07-28 Test Time: 05:27:59 Pat Name: MEGHA CAPONE Department: [facility] Room: ED Gender: M Outer Diameter Technician: [id number] : 1965 Requested By: TAMAR QUIROGA Order Number: [id number] Reading MD: South Prakash Measurements Intervals Switchback Rate: 66 P: 2 WA: 197 QRS: -29 QRSD: 90 T: 54 QT: 418 QTc: 440 Interpretive Statements Sinus rhythm Compared to ECG 04/13/2024 23:45:53 No significant changes Electronically Signed On 07-28-2024 20:17:28 STEAM PLANT CONTROL ROOM OPERATOR by South Prakash Please click the below link to view image of tracing.
--- NOTE | 2024-07-28 09:06 | NUR ---
ASSOCIATE MARKETING MANAGER IN ROOM WITH PT FOR DIALYSIS TX.
[2024-07-28] MEDS: hydroMORPHone 0.5 MG SYG (0.5MG/0.5ML) IVP PRN (09:31)
[2024-07-28 10:14] LABS: RAPID GROUP A STREP negative (NEGATIVE)
[2024-07-28] MEDS: 0.9%NACL 1000ML 1,000 ML IV SCH (10:30)
[2024-07-28] MEDS: IpraTROPium 0.5 MG/2.5 ML INH IH SCH (10:36)
[2024-07-28 10:51] LABS: COVID19 (SARS ANTIGEN RAPID) PRESUMPTIVE NEGATIVE (NEGATIVE)
--- NOTE | 2024-07-28 11:13 | NUR ---
DCP: HOME Sw met with pt who is on dialysis at [facility] at 11:30am. transports. Pt lives at home with Charlee Wang, [phone]. Pt states daughter is his provider daily. Pt has a cane, walker and w/c, requesting a fili lift and bsc, Pt encouraged pt to discuss DME needs with PCP Les Johnson. Uses [facility] for rx. Pt states he was discharged from [facility] 10 days ago and does not want to go back. DCP is home. Addendum: 07/28/24 at 1118 by ENZO DEVI Amended: Links added.
[2024-07-28 11:14] LABS: INFLUENZA TYPE A NEGATIVE FOR TYPE A (NEGATIVE); INFLUENZA TYPE B NEGATIVE FOR TYPE B (NEGATIVE)
--- NOTE | 2024-07-28 11:22 | HMCIMG ---
CHEST 1VW HISTORY: CHF COMPARISON: 04/17/2024 FINDINGS: A frontal projection of the chest was obtained. There are bilateral pulmonary infiltrates suggestive of pulmonary vascular congestion with possible superimposed pneumonitis. The heart is borderline enlarged. Degenerative changes are seen. No evidence of aortic calcification is seen. IMPRESSION: 1. Bilateral pulmonary infiltrates are seen suggestive of pulmonary vascular congestion with possible superimposed pneumonitis.
[2024-07-28] MEDS: ASPIRIN 81MG CHEW TAB PO SCH (13:18)
[2024-07-28] MEDS: FAMOTIDINE 20MG TAB PO SCH (13:19)
[2024-07-28] MEDS: cloNIDine HCL 0.2 MG TABLET PO SCH (13:19)
[2024-07-28] MEDS: SODIUM ZIRCONIUM CYCLOSILICATE 5 GM POWD.PACK PO ONE ×2 (13:19→13:20)
[2024-07-28] MEDS: amLODIPine 5 MG TAB PO SCH (13:20)
--- NOTE | 2024-07-28 14:20 | NUR ---
PT JUST PLACED INTO MY ED BED 10
--- NOTE | 2024-07-28 14:30 | NUR ---
ASSUMPTION OF CARE AT THIS TIME.
--- NOTE | 2024-07-28 14:32 | NUR ---
[facility] Consult: Patient assessed by wound healing team. See wound assessment. Assessment and recommendations provided to primary nurse. Education provided. Wound care done. Addendum: 07/28/24 at 1535 by BARBARA LOPEZ RN RN/ Amended: Links added.
--- NOTE | 2024-07-28 14:36 | NUR ---
WOUND CARE AT BEDSIDE. THEY HAVE TAKEN PHOTOS OF THE WOUNDS ON HIS BILATERAL STUMPS AND ARE DOING DRESSINGS AT THIS TIME.
--- NOTE | 2024-07-28 15:00 | NUR ---
REPORT RECEIVED FROM ANA BURDICK
--- NOTE | 2024-07-28 16:08 | CONS ---
CONSULTATION NOTE Date of Service: Jul 28, 2024 Reason for Consultation: [ Pain of Bilateral BKA ] Requesting Physician: [ Hospitalist ] HISTORY OF PRESENT ILLNESS: [ 07/28/24 Mr. Wang is a 58-year-old male with frequent admissions and history of medical noncompliance came into the ER complaining of increasing shortness of breath orthopnea and swelling of the face. He also complained of pain in the stumps of his BKA he stated that he went for hemodialysis on Thursday which was 4 3-1/2 hours. He has a known history of recreational drug abuse.Wound care consult ordered due to bilateral BKA pain. Primary nurse to assist was Neci & floor nurse. Patient not family present ] REVIEW OF SYSTEMS Constitutional: Negative for fever,chills, and weight loss Eyes: Negative for injury, pain,redness, and discharge ENT: Negative for injury,pain or swelling Cardiovascular: Negative for chest pain, palpitations, and positive edema and PND and orthopnea Respiratory: Positive for shortness of breath, mild cough, and wheezing, Abdomen/GI: Negative for abdominal pain, nausea, vomiting, diarrhea, and constipation Back: Negative for injury and pain : Negative for injury, bleeding and discharge MS/Extremity: Negative for injury and deformity complains of pain in the bilateral stumps more left side Skin: Negative for rash, and discoloration Neuro: Negative for headache, weakness, numbness, tingling, and seizure Psych: Negative for suicide ideation, homicidal ideation, and hallucinations PAST MEDICAL HISTORY: [ diabetes mellitus, hypertension, end-stage renal disease on hemodialysis Thursday and Thursday schedule, depression, cocaine abuse., chronic anemia related to kidney disease, CHF, depression] PAST SURGICAL HISTORY: [ Amputation of his lower extremities [id number] ] PAST SOCIAL HISTORY: [Drugs ] FAMILY HISTORY: [ Negative ] Coded Allergies: No Known Drug Allergies (Unverified Allergy, Unknown, 05/07/21) PHYSICAL EXAM EYES: Anicteric. Pupils equal and reactive. HENT: No oral thrush seen, moist Oral mucosa NECK: Supple, no JVD or thyromegaly. LUNGS: Good air entry. No rales, no rhonchi. CARDIOVASCULAR: S1, S2 regular. No murmur heard. ABDOMEN: Soft, non tender, bowel sounds present, no organomegaly CENTRAL NERVOUS SYSTEM: Awake, alert, oriented x 3. No focal deficits. SKIN: No rashes, no swelling. LYMPHATICS: No peripheral lymphadenopathy MUSCULOSKELETAL: No joint swelling, erythema or tenderness. EXTREMITIES: No cyanosis or clubbing; trace edema without any palpable cords, Homans sign is negative bilateral below-knee amputations both stumps have dressing, small amount of drainage from the left stump BACK: No deformity, no pressure ulcer. GENITOURINARY: No dysuria or hematuria Vital Sign (Last 24 Hours) 07/28/24 07/28/24 07/28/24 12:45 13:24 13:57 Temp 98.1 Pulse 64 Resp 18 B/P (MAP) 185/79 Pulse Ox 100 O2 Delivery Nasal Cannula* O2 Flow Rate 2 FiO2 28 LABS: Laboratory: Test 07/28/24 12:10 07/28/24 09:32 07/28/24 05:30 Range/Units Whole Blood Glucose 150 H 70-110 MG/DL Influenza Type A Antigen NEGATIVE FOR TYPE A NEGATIVE Influenza Type B Antigen NEGATIVE FOR TYPE B NEGATIVE SARS-CoV-2 Antigen (Rapid) PRESUMPTIVE NEGATIVE NEGATIVE Group A Streptococcus Rapid negative NEGATIVE White Blood Count 7.6 4.8-10.8 K/uL Red Blood Count 3.48 L 4.50-6.20 MIL/uL Hemoglobin 10.7 L 14.0-18.0 g/dL Hematocrit 33.3 L 42-54 % Mean Corpuscular Volume 95.7 79-99 fL Mean Corpuscular Hemoglobin 30.7 27.0-33.0 pg Mean Corpuscular Hemoglobin Concent 32.1 32.0-36.0 g/dL Red Cell Distribution Width 18.0 H 11.0-15.5 % Platelet Count 256 130-400 K/uL Mean Platelet Volume 10.0 7.5-10.5 fL Immature Granulocyte % (Auto) 0.3 0-1 % Neutrophils (%) (Auto) 68.9 40.0-77.0 % Lymphocytes (%) (Auto) 15.1 L 21.0-51.0 % Monocytes (%) (Auto) 10.4 3.0-13.0 % Eosinophils (%) (Auto) 3.7 0.0-8.0 % Basophils (%) (Auto) 1.6 0.0-5.0 % Neutrophils # (Auto) 5.3 1.8-7.7 K/uL Lymphocytes # (Auto) 1.2 1.0-4.8 K/uL Monocytes # (Auto) 0.8 0.1-1.0 K/uL Eosinophils # (Auto) 0.28 0.00-0.70 K/uL Basophils # (Auto) 0.12 0.00-0.20 K/uL Absolute Immature Granulocyte (auto 0.02 0-1 K/uL Nucleated Red Blood Cells 0.0 0.0-0.19 % Red Blood Cell Morphology See comments Sodium Level 139 136-145 mmol/L Potassium Level 5.3 H 3.5-5.1 mmol/L Chloride Level 104 101-111 mmol/L Carbon Dioxide Level 25 21-32 mmol/L Blood Urea Nitrogen 54 H 7-18 mg/dL Creatinine 5.2 H 0.5-1.3 mg/dL Glomerular Filtration Rate Calc 12 >90 mL/min Random Glucose 129 H 70-105 mg/dL Total Calcium 8.8 8.5-10.1 mg/dL B-Type Natriuretic Peptide 4140 H 0-100 pg/mL DIAGNOSTICS / RADIOLOGY: [ ] PROBLEM LIST : Medical Problems: (1) Hyperkalemia ICD Codes: E87.5 - Hyperkalemia (1) Acute on chronic congestive heart failure with left ventricular diastolic dysfunction (2) End-stage renal disease on hemodialysis (3) Severe peripheral arterial disease (4) Status post below-knee amputation of both lower extremities (5) Anemia of chronic disease (6) Chronic pain PLAN: [ Betadine dressing bilateral lower extremity stumps with dry dressing Change dressing QD Pressure ulcer prevention per facility protocol ] ANDRES LEDBETTER Jul 28, 2024 16:08
[2024-07-28 17:09] LABS: HEPATITIS B CORE AB TOTAL Non-Reactive (Nonreactive); HEPATITIS B SURFACE ANTIBODY Positive (Reactive); HEPATITIS B SURFACE ANTIGEN Non-Reactive (Nonreactive)
--- NOTE | 2024-07-28 18:39 | CONS ---
NEPHROLOGY CONSULTATION NOTE Date/Time Patient Seen: Jul 28, 2024 1420 Reason for Consultation: Fluid overload, end stage renal disease HISTORY OF PRESENT ILLNESS: This is a 58-year-old with past medical history of type 2 diabetes mellitus, end-stage renal disease on hemodialysis Thursday, essential hypertension, history of cocaine and THC abuse and noncompliance He presented to the emergency department for evaluation of shortness of breath He came into the ER complaining of increasing shortness of breath orthopnea and swelling of the face. He also complained of pain in the stumps of his BKA He has a known history of recreational drug abuse. At presentation his blood pressure was 202/92 He tolerated dialysis without difficulty. He was seen in the emergency room, he states pulmonary symptoms have improved REVIEW OF SYSTEMS: GENERAL: Positive for shortness of breath NEUROLOGIC: Negative for any blurry vision, blind spots, double vision, facial asymmetry, dysphagia, dysarthria, hemiparesis, hemisensory deficits, vertigo, ataxia. HEENT: Negative for any head trauma, neck trauma, neck stiffness, photophobia, phonophobia, sinusitis, rhinitis. CARDIAC: Negative for any chest pain, dyspnea on exertion, paroxysmal nocturnal dyspnea, peripheral edema. PULMONARY: Negative for any shortness of breath, wheezing, COPD, or TB exposure. GASTROINTESTINAL: Negative for any abdominal pain, nausea, vomiting, bright red blood per rectum, melena. GENITOURINARY: Negative for any dysuria, hematuria, incontinence. INTEGUMENTARY: Negative for any rashes, cuts, insect bites. RHEUMATOLOGIC: Negative for any joint pains, photosensitive rashes, history of vasculitis or kidney problems. HEMATOLOGIC: Negative for any abnormal bruising, frequent infections or bleeding. PAST MEDICAL HISTORY: diabetes mellitus, hypertension, end-stage renal disease on hemodialysis Thursday and Thursday schedule, depression, cocaine abuse., chronic anemia related to kidney disease PAST SURGICAL HISTORY: Amputation of his lower extremities [id number] AV access PAST SOCIAL HISTORY: Positive for cocaine use FAMILY HISTORY: Noncontributory PHYSICAL EXAM: GENERAL: Alert and oriented x 3. No acute distress. Well-nourished. EYES: EOMI. Anicteric. HENT: Moist mucous membranes. No scleral icterus. No cervical lymphadenopathy. LUNGS: Clear to auscultation bilaterally. No accessory muscle use. CARDIOVASCULAR: Regular rate and rhythm. No murmur. No JVD. ABDOMEN: Soft, non-tender and non-distended. No palpable masses. EXTREMITIES: No edema. Non-tender. SKIN: No rashes or lesions. Warm. NEUROLOGIC: No focal neurological deficits. CN II-XII grossly intact, but not individually tested. PSYCHIATRIC: Cooperative. Appropriate mood and affect. MEDICATIONS: [ ] Current Medications Medications (Trade) Dose Ordered Sig/Anthony Route PRN Reason Start Time Stop Time Status Last Admin Dose Admin Acetaminophen (TYLenol 325MG TAB) 650 mg Q6H PRN PO FEVER/MILD PAIN LEVEL 1-3 07/28/24 07:00 08/27/24 06:59 Acetaminophen (TYLenol 650MG SUPPOSITORY) 650 mg Q6H PRN RC FEVER / MILD PAIN 1-3 IF NPO 07/28/24 07:00 08/27/24 06:59 Albuterol Sulfate (Proventil 0.083% 2.5mg/3ml) 2.5 mg [id number] PRN IH SHORTNESS OF BREATH 07/28/24 07:00 08/27/24 06:59 Amlodipine Besylate (NorvASC 5MG TAB) 10 mg DAILY PO 07/28/24 09:00 08/27/24 08:59 07/28/24 13:20 10 MG Aspirin (Aspirin 81mg Chew Tab) 81 mg DAILY PO 07/28/24 09:00 08/27/24 08:59 07/28/24 13:18 81 MG Clonidine HCl (CATApres 0.2 MG TAB) 0.2 mg BID PO 07/28/24 09:00 08/27/24 08:59 07/28/24 13:19 0.2 MG Docusate Sodium (COLace 100MG CAP) 100 mg BID PRN PO c 07/28/24 07:00 08/27/24 06:59 Famotidine (Pepcid 20mg Tab) 20 mg Q48H PO 07/28/24 09:00 08/27/24 08:59 07/28/24 13:19 20 MG Hydralazine HCl (APRESOLine 20MG INJ) 10 mg Q6H PRN IV SBP GREATER THAN 180 07/28/24 07:00 08/27/24 06:59 Hydromorphone HCl (DiLAUDid 0.5MG INJ) 0.5 mg Q4H PRN IVP SEVERE PAIN (7-10) 07/28/24 08:30 08/02/24 08:29 07/28/24 17:03 0.5 MG Insulin Human Regular (humuLIN R 100 UNIT/ML 3ML) INSULIN SLIDING SCAL... ACHS SQ 07/28/24 07:30 08/27/24 07:29 Ipratropium [place] (AtrovENT UD) 0.5 mg [id number] IH 07/28/24 10:00 08/27/24 09:59 07/28/24 13:56 0.5 MG Lactulose (Constulose 20gm/ 30ml Udcup) 20 gm Q6H PRN PO CONSTIPATION 07/28/24 07:00 08/27/24 06:59 Nitroglycerin (Nitroglycerin 1gm Oint) 1 inch Q8H TD 07/28/24 07:00 08/27/24 06:59 07/28/24 17:02 1 INCH Ondansetron HCl (zoFRAN 4MG INJ) 4 mg Q6H PRN IVP NAUSEA/VOMITING 07/28/24 07:00 08/27/24 06:59 Sodium Chloride 1,000 ml @ 0 mls/hr ONCE IV 07/28/24 10:30 08/27/24 10:29 07/28/24 12:48 1,000 MLS/HR Temazepam (restORIL 15 MG CAP) 15 mg HS PRN PO INSOMNIA/SLEEP 07/28/24 07:00 08/27/24 06:59 Thiamine HCl (Vitamin B-1) 100 mg DAILY IVP 07/29/24 09:00 08/28/24 08:59 Vitamin B Complex/ Vit C/Folic Acid (Nephrovite Tablet) 1 cap DAILY PO 07/29/24 09:00 08/28/24 08:59 Vital Signs (last 8hr) Date Time Temp Pulse Resp B/P (MAP) Pulse Ox O2 Delivery O2 Flow Rate FiO2 07/28/24 13:57 64 18 07/28/24 13:24 73 18 185/79 100 Nasal Cannula* 2 28 07/28/24 13:19 73 185/79 07/28/24 13:00 97.7 54 14 174/68 100 Nasal Cannula 3.0 07/28/24 12:45 98.1 54 14 152/70 100 Nasal Cannula 3.0 07/28/24 12:30 51 14 156/65 100 Nasal Cannula 3.0 07/28/24 12:15 58 14 169/64 100 Nasal Cannula 3.0 07/28/24 12:00 54 14 174/68 100 Nasal Cannula 3.0 07/28/24 11:45 53 14 165/66 100 Nasal Cannula* 3 32 07/28/24 11:45 53 14 165/66 100 Nasal Cannula 3.0 07/28/24 11:30 55 14 175/68 100 Nasal Cannula 3.0 07/28/24 11:15 53 14 168/75 100 Nasal Cannula 3.0 07/28/24 11:00 54 14 170/65 100 Nasal Cannula 3.0 07/28/24 10:45 54 14 164/75 100 Nasal Cannula 3.0 07/28/24 10:37 55 18 DIAGNOSTICS / RADIOLOGY: REASON: chf ORDERING PHYSICIAN: TAMAR QUIROGA MD PROCEDURE: CXR1VW - CHEST 1VW CHEST 1VW HISTORY: CHF COMPARISON: 04/17/2024 FINDINGS: A frontal projection of the chest was obtained. There are bilateral pulmonary infiltrates suggestive of pulmonary vascular congestion with possible superimposed pneumonitis. The heart is borderline enlarged. Degenerative changes are seen. No evidence of aortic calcification is seen. IMPRESSION: 1. Bilateral pulmonary infiltrates are seen suggestive of pulmonary vascular congestion with possible superimposed pneumonitis. DICTATED BY: JIN CAPELLAN MD DATE: 07/28/24 1119 LABORATORY: [ ] Hematology Labs: Test 07/28/24 05:30 Range/Units White Blood Count 7.6 4.8-10.8 K/uL Red Blood Count 3.48 L 4.50-6.20 MIL/uL Hemoglobin 10.7 L 14.0-18.0 g/dL Hematocrit 33.3 L 42-54 % Mean Corpuscular Volume 95.7 79-99 fL Mean Corpuscular Hemoglobin 30.7 27.0-33.0 pg Mean Corpuscular Hemoglobin Concent 32.1 32.0-36.0 g/dL Red Cell Distribution Width 18.0 H 11.0-15.5 % Platelet Count 256 130-400 K/uL Mean Platelet Volume 10.0 7.5-10.5 fL Immature Granulocyte % (Auto) 0.3 0-1 % Neutrophils (%) (Auto) 68.9 40.0-77.0 % Lymphocytes (%) (Auto) 15.1 L 21.0-51.0 % Monocytes (%) (Auto) 10.4 3.0-13.0 % Eosinophils (%) (Auto) 3.7 0.0-8.0 % Basophils (%) (Auto) 1.6 0.0-5.0 % Neutrophils # (Auto) 5.3 1.8-7.7 K/uL Lymphocytes # (Auto) 1.2 1.0-4.8 K/uL Monocytes # (Auto) 0.8 0.1-1.0 K/uL Eosinophils # (Auto) 0.28 0.00-0.70 K/uL Basophils # (Auto) 0.12 0.00-0.20 K/uL Absolute Immature Granulocyte (auto 0.02 0-1 K/uL Nucleated Red Blood Cells 0.0 0.0-0.19 % Red Blood Cell Morphology See comments Chemistry Labs: Test 07/28/24 16:52 07/28/24 05:30 Range/Units Whole Blood Glucose 105 70-110 MG/DL Sodium Level 139 136-145 mmol/L Potassium Level 5.3 H 3.5-5.1 mmol/L Chloride Level 104 101-111 mmol/L Carbon Dioxide Level 25 21-32 mmol/L Blood Urea Nitrogen 54 H 7-18 mg/dL Creatinine 5.2 H 0.5-1.3 mg/dL Glomerular Filtration Rate Calc 12 >90 mL/min Random Glucose 129 H 70-105 mg/dL Total Calcium 8.8 8.5-10.1 mg/dL B-Type Natriuretic Peptide 4140 H 0-100 pg/mL ASSESSMENT: Pulmonary Edema Acute hypoxemic respiratory failure Hyperkalemia End-stage renal disease Right Calcaneal Non healing wound Acute Diastolic Heart Failure Exacerbation, LVEF of 55% Echo 03/2024 Anemia of chronic renal disease Diabetes mellitus Uncontrolled hypertension History of tuberculosis, History of cocaine abuse PLAN: Labs and Diagnostics/ Radiology personally reviewed and interpreted by myself and supervising physician We have reviewed dialysis and external records in detail Continue dialysis schedule Thursday BiPAP respiratory distress Epogen 12572 units subQ with each dialysis 1.5 L fluid restriction Continue to monitor H&H Start Nephro-Aman daily Continue with frequent monitoring of renal function, anemia, and electrolytes Order CBC, BMP, and electrolytes in the morning May use Dilaudid 0.5 mg IV every 6 hours as needed for severe pain Maintain glucose between 100-180mg/dl, AccuCheks QC and HS Monitor blood pressure adjust medication doses as needed Maintain normotensive state; keep systolic blood pressure between 110-160 Strict intake, output, and daily weight should be monitored Please renally adjust medications. Avoid nephrotoxics and nonsteroidal drugs. We will continue to monitor the patient closely We have discussed with the other team physicians in detail about the care plan ATTESTATION BY PHYSICIAN I have seen and examined the patient. I reviewed the documentation, medical decision making, and treatment plan as noted by the mid-level provider above. I agree with the findings and plan of care. VANIA BADILLO MD, [facility] Jul 28, 2024 18:39 VANIA BADILLO MD Jul 28, 2024 22:42
--- NOTE | 2024-07-28 19:19 | NUR ---
REPORT ENDORSED TO GAURAV BURDICK
--- NOTE | 2024-07-28 22:34 | PN ---
NEPHROLOGY NOTE SUBJECTIVE: The patient has been evaluated and seen for dialysis and seen multiple times. No other associated finding. No other aggravating or relieving factors. The patient is generally weak. The patient has no other associated finding. The patient is noncompliant. The patient has weakness. Otherwise, unchanged review. PHYSICAL EXAMINATION: GENERAL: Pale, sick looking, lying in bed. VITAL SIGNS: Blood pressure is 185/79, pulse 73, respiratory rate is 18, afebrile. HEENT: Head is atraumatic. Pupils are round and reactive. Sclerae are anicteric. Conjunctivae not pale. Oral mucosa is not dry. NECK: Supple. No masses or bruits. Thyroid is palpable. Neck has no bruits. LABORATORY DATA: Labs have been reviewed in detail. Lab data has shown hemoglobin is low up to 10.7, potassium has been 5.3, elevated. Old records reviewed. PROBLEMS: Renal failure, anemia, underlying multiple other comorbidities. The patient is weak. PLAN: Will be to continued monitoring. Follow up on renal function. Follow up on electrolytes. Dialysis support, seen for dialysis multiple times. We will be monitoring closely. I have discussed with the patient all the options. Condition remained critical and guarded. Thank you for this patient. TID: [id number] RECEIPT: [id number]
--- NOTE | 2024-07-28 23:39 | NUR ---
REPORT GIVEN TO NURSE CHANCE
[2024-07-29] VITALS (7 sets, daily range): BP systolic 150–151; BP diastolic 71–89; PULSE 58–70; RESP 16–19; TEMP 97.7–98.1; O2SAT 97–100
[2024-07-29 05:58] LABS: BASOPHILS # (AUTO) 0.13 K/uL (0.00-0.20); BASOPHILS % (AUTO) 1.8 % (0.0-5.0); EOSINOPHILS # (AUTO) 0.26 K/uL (0.00-0.70); EOSINOPHILS % (AUTO) 3.5 % (0.0-8.0); HEMATOCRIT 29.7 % (42-54); IMMATURE GRANULOCYTE ABSOLUTE 0.02 K/uL (0-1); LYMPHOCYTES # (AUTO) 1.3 K/uL (1.0-4.8); LYMPHOCYTES % (AUTO) 17.4 % (21.0-51.0); MEAN CORPUSCULAR HEMOGLOBIN 30.8 pg (27.0-33.0); MEAN CORPUSCULAR VOLUME 96.4 fL (79-99); MONOCYTES # (AUTO) 0.9 K/uL (0.1-1.0); MONOCYTES % (AUTO) 12.5 % (3.0-13.0); NEUTROPHILS # (AUTO) 4.7 K/uL (1.8-7.7); NEUTROPHILS % (AUTO) 64.5 % (40.0-77.0); PLATELET COUNT (AUTO) 235 K/uL (130-400); RED BLOOD CELL COUNT(AUTO) 3.08 MIL/uL (4.50-6.20); RED CELL DISTRIBUTION WIDTH 17.6 % (11.0-15.5); WHITE BLOOD COUNT (AUTO) 7.3 K/uL (4.8-10.8)
[2024-07-29 06:11] LABS: BILIRUBIN,TOTAL 0.3 mg/dL (0.2-1.0); CREATININE 4.2 mg/dL (0.5-1.3); PHOSPHORUS 5.6 mg/dL (2.5-4.9); POTASSIUM 5.4 mmol/L (3.5-5.1); TOTAL PROTEIN, SERUM 6.8 g/dL (6.0-8.3)
[2024-07-29] MEDS: Vitamin B Complex/Vit C/Folic Acid PO SCH (08:44)
[2024-07-29] MEDS: cloPIDOgrel 75MG TAB PO SCH (08:45)
[2024-07-29] MEDS: THIAMINE HCL 100 MG/ML 2ML VIAL IVP SCH (08:46)
[2024-07-29] MEDS: kayEXALate 15GM/60ML PO ONE (10:13)
--- NOTE | 2024-07-29 11:39 | DS ---
[facility] DISCHARGE SUMMARY Date Patient Seen: Jul 29, 2024 Time of Visit: 11:34 Supervising Physician: Dr Luna Primary Care Physician: Dave Johnson MD Outpatient Specialists: Dr Thakur Inpatient Consults: Dr Thakur , Wound care PROBLEM LIST: Acute hypoxic respiratory failure, POA resolved Acute on chronic diastolic heart failure with the EF 55% on 2D echo 03/2024 ESRD on HD (TTS) via RUE AV fistula, POA Hypokalemia, POA resolved Bilateral AKA down in POA Anemia of chronic illness Hyperglycemia in the presence of type 2 diabetes mellitus, POA Hypertensive urgency, POA History of tuberculosis, cocaine and marijuana abuse, noncompliance to medical treatment HOSPITAL COURSE: HPI (per admitting provider) This is a 58-year-old chronically ill male with a history of noncompliance to medical regimen, type 2 diabetes mellitus, Bila AKA stump wounds, ESRD on hemodialysis T,,S, essential hypertension, and drug abuse who presented to the emergency department for complaints of shortness breath, orthopnea and swelling to the face. Patient also complain of pain to bilateral BKA stumps with chronic wounds. Patient reports he went to dialysis four days ago on Thursday. He arrived to the emergency department with a blood pressure of 202/92 with a heart rate of 63 respiratory rate of 16 saturating 99% with 2 L via nasal cannula and afebrile. On laboratory H&H is 10.7/33.3 platelet count is [id number]. He denies any GI bleed. Chemistry potassium was 5.3 initially BUN 54 creatinine was two random glucose 129 mg/dL he was given one dose of Lokelma 10 mg p.o.. On chest x-ray bilateral pulmonary infiltrates are seen suggestive of pulmonary vascular congestion with possible superimposed pneumonitis, consistent with pulmonary edema. BNP 4140. Patient is negative for influenza type a and B SARS COVID-19 and strep throat. Nephrology was consulted who recommended for hemodialysis the patient tolerated hemodialysis well 3.5 L. consulted Wound Care for bilateral AKA wounds. Today patient is seen sitting up at side of the bed with no signs of acute distress. Patient received hemodialysis yesterday with 3.5 L removed and his respiratory status has improved back to baseline. Patient is adamant he wants to go home but he is feels fine and he will follow up with hemodialysis tomorrow. Vital signs are stable. Labs are within normal limits. Chemistries did show potassium slightly elevated at 5.2 and Kayexalate was given. Patient was admitted by Nephrology and recommends to continue dialysis TTS. Patient was evaluated by wound care team and recommend Betadine dressing to bilateral lower extremities times daily. Patient reports he will do his wound care dressings at home with his family. Patient has been advised to follow up with PCP in the next 1-2 days. Patient has been advised on importance of fluid restriction comp liance to help prevent recurrent volume overload. Patient has been advised to continue hemodialysis scheduled TTS. Patient verbalized understanding. Medication reconciliation has been completed. Education regarding current diagnosis been prior to the patient. All questions have been answered. Patient to be discharged home. The patient was treated for the following problems: ACTIVE PROBLEM LIST FOR THE HOSPITALIZATION: Acute hypoxic respiratory failure, POA resolved Acute on chronic diastolic heart failure with the EF 55% on 2D echo 03/2024 ESRD on HD (TTS) via RUE AV fistula, POA Hypokalemia, POA resolved Bilateral AKA down in POA Anemia of chronic illness Hyperglycemia in the presence of type 2 diabetes mellitus, POA Hypertensive urgency, POA History of tuberculosis, cocaine and marijuana abuse, noncompliance to medical treatment CHRONIC PROBLEMS: continue previous management per PCP unless otherwise indicated [employer] FINDINGS/RECOMMENDATIONS: [ ] PROCEDURES: as mentioned above DISCHARGE MEDICATIONS: See DC med list Pt hemodynamically stable and afebrile at time of discharge. PCP notified of patients admission, hospital course and discharge. Continued Medications: Amlodipine Besylate (Amlodipine Besylate) 10 Mg Tablet 10 MG PO DAILY for 30 Days, #30 TAB 0 Refills Ascorbic Acid (Vitamin C) 500 Mg Capsule 500 MG PO BID, CAP Atorvastatin Calcium (Lipitor) 40 Mg Tablet 1 TAB PO HS for 30 Days, #30 TAB 0 Refills Clopidogrel Bisulfate (Clopidogrel) 75 Mg Tablet 1 TAB PO DAILY for 30 Days, #30 TAB 0 Refills Docusate Sodium (Docusate Sodium) 100 Mg Capsule 1 CAP PO BID for constipation for 7 Days, #14 CAP 0 Refills Omeprazole (Omeprazole) 20 Mg Capsule.dr 1 CAP PO DAILY for 30 Days, #30 CAP 0 Refills Sevelamer HCl (Sevelamer HCl) 800 Mg Tablet 800 MG PO TID, TAB Vit B Cmplx 3/FA/Vit C/Biotin (Melissa-Aman Rx Tablet) 1 Mg-60 Mg-300 Mcg Tablet 1 TAB PO DAILY for 30 Days, #30 TAB 0 Refills Discontinued Medications: Clopidogrel Bisulfate (Clopidogrel) 75 Mg Tablet 75 MG PO DAILY, TAB PHYSICAL EXAM: GENERAL: alert, weak, awake oriented x 3 HEENT: EOMI, Sclera non icteric, moist mucosa NECK: Supple, no JVD, trachea midline LUNGS: Diminished breath sounds bilaterally. No wheezes HEART: Regular rate and rhythm. Normal S1 and S2, without murmurs ABD: Abdomen soft, nontender. Bowel sounds present EXT: No clubbing cyanosis or edema, right upper extremity AV fistula, bilateral AKA NEURO: Alert and oriented to person, follows commands FOLLOW-UP: Follow-up with PCP in 2-3 days Follow up with hemodialysis scheduled TTS RECOMMENDATIONS: See Discharge Instructions This case was seen and discussed with my supervising physician. More than 30 minutes spent on discharge process, including evaluation of the patient, discussion with nursing staff, medication reconciliation and follow-up appointments ATTESTATION BY PHYSICIAN I have evaluated the patient chart, medical records, and spoke with appropriate staff. I reviewed the documentation, medical decision making, and treatment plan as noted by the mid-level provider above. I agree with the findings and plan of care. Sabas Luna MD, ECTOR N NP Jul 29, 2024 11:39
--- NOTE | 2024-07-29 17:30 | NUR ---
note summary/dc patient alert x4 i dc'd patients iv with cath still in place and applied 2x2 gauze with tape i explained to patient to follow up with pcp and dialysis as scheduled i took patient down to transport via wheelchair, no complications
--- NOTE | 2024-07-31 00:13 | PN ---
SUBJECTIVE: The patient was brought in with acute hypoxic respiratory failure and fluid overload. He has underlying diabetes, hypertension, history of drug abuse, cocaine abuse, marijuana use and noncompliance. The patient came with severe hypertension and hypoxic respiratory failure. The patient had below-knee amputation in the past and has been in a fpc. No other associated finding. No other aggravating or relieving factors. PHYSICAL EXAMINATION: GENERAL: Pale, no other distress. VITAL SIGNS: Blood pressure has been around 151/69, pulse is 70 and respiratory rate is 16. HEENT: Head is atraumatic. Pupils are round and reactive. Sclerae are anicteric. Conjunctivae not pale. Oral mucosa is not dry. NECK: Supple. No masses or bruits. Thyroid is palpable. Neck has no bruits. CHEST: Shows equal thoracic percussion note being resonant in all areas. LABORATORY DATA: Labs have been reviewed in detail and old records reviewed. The patient has hemoglobin 9.5. Chemistries have been reviewed. Potassium intermittently high. PROBLEMS: Renal failure, anemia, electrolyte problem and hypoxic respiratory failure. PLAN: To continue with supportive care. Low potassium diet is advised. Dialysis on schedule, next one is planned on Thursday. The patient has been counseled on the diet and medications personally and will be following up. Condition remained guarded. The patient was seen several times today. Condition is critical, guarded. Overall condition is poor. Thank you for this patient. TID: [id number] RECEIPT: [id number]
== END 2024-07-29 12:05 | disposition home or self-care (01) | DRG 291 ==
LOC: EDH 04:41 → EDHIP 06:30 → 4AH 22:07
PROVIDERS: ADMIT Internal Medicine; ATTEND Internal Medicine
PROC: 5A1D70Z Performance of Urinary Filtration, Intermittent, Less than 6 Hours Per Day (ICD-10-PCS; principal; 2024-07-28)
DX: I13.2 Hypertensive heart and chronic kidney disease with heart failure and with stage 5 chronic kidney disease, or end stage renal disease (principal); I50.33 Acute on chronic diastolic (congestive) heart failure; J96.01 Acute respiratory failure with hypoxia; N18.6 End stage renal disease; E11.22 Type 2 diabetes mellitus with diabetic chronic kidney disease; E87.6 Hypokalemia; D63.1 Anemia in chronic kidney disease; E11.65 Type 2 diabetes mellitus with hyperglycemia; I16.0 Hypertensive urgency; E11.51 Type 2 diabetes mellitus with diabetic peripheral angiopathy without gangrene; E87.5 Hyperkalemia; Z20.822 Contact with and (suspected) exposure to COVID-19; G89.29 Other chronic pain; F32.A Depression, unspecified; Z86.11 Personal history of tuberculosis; Z89.611 Acquired absence of right leg above knee; Z99.2 Dependence on renal dialysis; Z89.612 Acquired absence of left leg above knee; Z89.511 Acquired absence of right leg below knee; Z89.512 Acquired absence of left leg below knee; Z79.899 Other long term (current) drug therapy
CPT/HCPCS: 36415; 71045; 80048; 80053; 82948; 83735; 83880; 84100; 85025; 86704; 86706; 87040; 87340; 87426; 87804; 87880; 90935; 93005; 94640; 94660; 96374; 99285; G0378; J1171; J3411